=== PATIENT | female | born 1960 | race Caucasian/White ===

== ENCOUNTER 2019-05-16 19:30 | Emergency (ER) | payer BC, SELFPAY ==
[2019-05-16 19:36] VITALS: BP 138/71; PULSE 77; RESP 20; TEMP 36.8; O2SAT 97
--- NOTE | 2019-05-16 19:58 | ED.GENADULT ---
HPI - General Adult General Chief complaint: Neck Pain/Injury Stated complaint: neck pain Time Seen by Provider: 05/16/19 19:49 Source: patient Mode of arrival: ambulatory Limitations: no limitations History of Present Illness HPI narrative: Patient is a 58-year-old female who presents to emergency department for evaluation of neck pain that she woke with 2 days ago with some moderate aching pain in the posterior aspect of the neck that does not radiate is tried [id number] medications and interventions with minimal improvement patient on arrival to emergency department is in the room in no distress Related Data Home Medications Medication Instructions Recorded Confirmed simvastatin 10 mg tablet 10 mg PO DAILY 02/10/19 02/10/19 Allergies Allergy/AdvReac Type Severity Reaction Status Date / Time latex Allergy Unknown UNKNOWN Verified 05/16/19 19:45 Penicillins Allergy Unknown UNKNOWN Verified 05/16/19 19:45 Review of Systems Review of Systems: All systems reviewed & are unremarkable except as noted in HPI and below PMFSH Past Medical History Medical History Bunionette of left foot (~2011) Surgical removal HLD (hyperlipidemia) Hypertension Social History Social History Smoking status: Never smoker Second hand tobacco smoke exposure: No Alcohol intake: never Substance use: never Substance use type: does not use Exam Narrative: Exam Narrative: GENERAL: Well-appearing, well-nourished, and in no acute distress. HEAD: Normocephalic, atraumatic. EYES: PERRLA and EOMI. ENT: Nares clear, no rhinorrhea or epistaxis. Mucous membranes moist. Oropharynx without tonsillar hypertrophy exudate or other lesions. Bilateral TMs pearly noe nonbulging NECK: Supple. No adenopathy or masses. CHEST: Clear to auscultation. No respiratory distress. No wheezes rales or rhonchi HEART: Regular rate and rhythm. No murmur heard. Normal peripheral pulses. ABDOMEN: Soft, nontender, nondistended EXTREMITIES: Normal range of motion. No edema. SKIN: Warm, dry, no rash. NEURO: No focal deficits. Alert and oriented x3. Cranial nerves II through XII grossly intact. Normal speech and gait PSYCH: Normal mood and affect. Course Course Emergency Course: Patient in the room in no distress aware of case findings treatment plan and diagnosis Vital Signs Vital signs: Vital Signs Temperature 98.2 F 05/16/19 19:36 Pulse Rate 77 05/16/19 19:36 Respiratory Rate 20 05/16/19 19:36 Blood Pressure 138/71 05/16/19 19:36 Pulse Oximetry 97 05/16/19 19:36 Temperature 98.2 F 05/16/19 19:36 Pulse Rate 77 05/16/19 19:36 Respiratory Rate 20 05/16/19 19:36 Blood Pressure 138/71 05/16/19 19:36 Pulse Oximetry 97 05/16/19 19:36 Medical Decision Making MDM Narrative Medical decision making narrative: Patient with likely spasmodic torticollis in the room afebrile nontoxic-appearing no distress and felt appropriate for discharge home Vital Signs Vital Signs: Vital Signs Temperature 98.2 F 05/16/19 19:36 Pulse Rate 77 05/16/19 19:36 Respiratory Rate 20 05/16/19 19:36 Blood Pressure 138/71 05/16/19 19:36 Pulse Oximetry 97 05/16/19 19:36 Temperature 98.2 F 05/16/19 19:36 Pulse Rate 77 05/16/19 19:36 Respiratory Rate 20 05/16/19 19:36 Blood Pressure 138/71 05/16/19 19:36 Pulse Oximetry 97 05/16/19 19:36 Discharge Plan Discharge Clinical Impression: Torticollis Patient Disposition: Home, Self-Care Condition: Stable Instructions: Antibiotic Form, Spasmodic Torticollis (ED) Additional Instructions: Follow up with your primary care doctor in 5-7 days for re-evaluation. Go to ER for worsening pain, vision changes, nausea/vomiting, fever/chills, weakness, chest pain, shortness of breath, numbness/tingling, slurred speech, difficulty walking, c
[2019-05-16] MEDS: DIAZEPAM 5 MG TABLET PO (20:04)
[2019-05-16] MEDS: KETOROLAC (*BKC) 60 MG/2 ML VIAL IM (20:04)
[2019-05-16 20:45] VITALS: BP 120/80; PULSE 80; RESP 20; TEMP 36.7; O2SAT 98
== END 2019-05-16 20:46 | disposition home or self-care (01) ==
LOC: ANHED 20:11
PROVIDERS: Emergency Provider Emergency Medicine; PCP Family Medicine
DX: M43.6 Torticollis (principal); E78.5 Hyperlipidemia, unspecified; I10 Essential (primary) hypertension
CPT/HCPCS: 96372; 99283; A9270; J1885

== ENCOUNTER 2022-01-01 12:28 | Inpatient (IN) | payer BC, SELFPAY ==
[2022-01-01] VITALS (11 sets, daily range): BP systolic 106–146; BP diastolic 63–87; PULSE 80–100; RESP 16–26; TEMP 36.5–37.3; O2SAT 91–100; BMI 27.1
--- NOTE | ~2022-01-01 | CT_ITS ---
EXAMINATION: CT abdomen pelvis w con INDICATION: Abdominal pain, nausea and vomiting TECHNIQUE: Computed tomographic images of the abdomen and pelvis were obtained after the administrati on of 100 cc of Omnipaque 350 intravenous contrast. The dose-length product (DLP) was 457.60 mGy-cm. Automated exposure control and iterative reconstruction technique were employed. COMPARISON: None available FINDINGS: Minimal dependent atelectasis is present in the lung bases. The heart size is normal. Punct ate calcifications in otherwise normal appearing liver and spleen likely represent healed granulomato us disease. The pancreas, gallbladder, and adrenal glands are normal. The kidneys are unremarkable. N o pathologically enlarged abdominal or pelvic lymph nodes are identified. There is colonic diverticul osis. There is wall thickening of the sigmoid colon with associated edematous stranding of the perisi gmoid fat. There is an approximately 1.9 x 1.4 cm area of perforation and abscess adjacent to the sig moid colon on image 118. There is a second small perisigmoid abscess on image 131 measuring 2.1 x 1.2 cm. The appendix is normal. There are no dilated loops of bowel. A 4.4 x 2.9 cm cystic area of the r ight pelvis likely relates to the right ovary. There is mild lumbar spondylosis. IMPRESSION: 1. Perforated sigmoid diverticulitis with small perisigmoid abscesses. Reviewed, dictated and finalized at location [facility].
[2022-01-01 13:01] LABS: Hematocrit 40.4 % (37.0-47.0); Hemoglobin 13.4 g/dL (12.0-15.0); Mean Corpuscular HGB Conc 33.2 g/dl (32-36); Mean Corpuscular Hemoglobin 32.6 pg (26-34); Mean Corpuscular Volume 98.3 fl (80-100); Mean Platelet Volume 9.4 fl (7.4-10.4); Platelet Count Result 439 k/mm3 (150-375); Red Blood Count 4.11 M/mm3 (4.2-5.4); Red Cell Distribution Width 14.6 % (11.5-14.5)
[2022-01-01 13:12] LABS: Alanine Aminotransferase 22 U/L (6-35); Alkaline Phosphatase 82 U/L (38-126); Anion Gap 9 mmol/L (8-16); Aspartate Amino Transferase 25 U/L (14-36); Bilirubin,Total 0.7 mg/dL (0.2-1.3); Blood Urea Nitrogen 18 mg/dL (7-17); Calcium 9.3 mg/dL (8.4-10.2); Carbon Dioxide 31 mmol/L (22-30); Chloride 100 mmol/L (98-107); Estimated CRCL calculation 71 ml/min; Estimated Glomerular Filt Rate > 60; Glucose 146 mg/dL (65-110); Lipase 42 U/L (23-300); Potassium 2.8 mmol/L (3.4-5.0); Sodium 140 mmol/L (137-145)
[2022-01-01 13:37] LABS: Band Neutrophils Percent 1 % (0-6); Lymphocytes Absolute Manual 0.66 K/mm3 (1.1-4.5); Monocytes Absolute Manual 0.44 K/mm3 (0.1-0.90); Monocytes Percent Manual 2 % (3-9); Neutrophils Percent Manual 94 % (46-73); Total Cells Counted 100
[2022-01-01 13:39] LABS: Platelet Estimate Increased (Adequate); Schistocytes None Seen (NORMAL)
[2022-01-01 13:44] LABS: Add Urine Microscopic? YES; Appearance Urine Cloudy (Clear); Bacteria Urine Trace /hpf; Bilirubin Urine Negative (Negative); Blood Urine Negative (Negative); Color Urine Yellow (Yellow); Glucose Urine UA Negative (Negative); Ketones Urine 1+ mg/dL (Negative); Leukocyte Esterase Ur Negative LEU/UL (Negative); Mucus Urine Rare /lpf; Nitrate Urine Negative (Negative); Protein Urine 1+ mg/dL (Negative); RBC Urine 0-2 /hpf (0-2); Specific Grav Ur 1.024 (1.001-1.035); Squamous Epithelial Cell Urine Many /hpf (Few)
--- NOTE | 2022-01-01 14:08 | ED.ABDPAIN ---
HPI - Abdominal Pain General Chief Complaint: Abdominal Pain Stated Complaint: abd pain Time Seen by Provider: 01/01/22 14:08 Source: patient Mode of arrival: ambulatory Limitations: no limitations History of Present Illness HPI narrative: Patient is a 61-year-old female with a history of hypertension presenting to the emergency department for evaluation of abdominal pain nausea and vomiting. Patient reports his acute onset nausea, vomiting this morning that awaken her from sleep. She also is reporting significant central abdominal pain with radiation to the back. Patient states she is having increased right flank pain when compared to the level. Patient denies fever or chills. She reports rhinorrhea, cough, shortness of breath. Patient denies any chest pain. Patient denies dysuria or hematuria. Patient did report some constipation and significant straining with bowel movements so she did use a Fleet enema and was able to have a bowel movement with some improvement in her symptoms. Patient denies any watery diarrhea, blood or mucus present in her stool. She denies significant abdominal distention or history of symptoms like this in the past. Patient also states that she was recently treated for poison sonu of the face with steroids. She was worried she may have a spider bite on her right cheek due to some discoloration and a small raised area. Patient denies any bleeding or excoriation. No pain. Patient states there was initially some edema of the right cheek which is now much improved. Related Data Allergies Allergy/AdvReac Type Severity Reaction Status Date / Time latex Allergy Unknown UNKNOWN Verified 01/01/22 16:56 Penicillins Allergy Unknown UNKNOWN Verified 01/01/22 16:56 Review of Systems Review of Systems: CONSTITUTIONAL: Denies fever, chills, or sweats. ENT: Denies rhinorrhea, congestion, sore throat, or otalgia. CARDIOVASCULAR: Denies chest pain, palpitations, or edema. RESPIRATORY: Denies cough or dyspnea. GASTROINTESTINAL: Reports abdominal pain, nausea, vomiting, constipation GENITOURINARY: Denies dysuria or hematuria. SKIN: Denies rash or itching. MUSCULOSKELETAL: Reports right flank pain without other joint pain, or myalgia. NEUROLOGIC: Denies headache, numbness, or weakness. [facility] Past Medical History Medical History Bunionette of left foot (~2011) Surgical removal HLD (hyperlipidemia) Hypertension Poison sonu dermatitis Surgical History Surgical History History of partial hysterectomy Partial vaginal hysterectomy Family History Family History Grandparent Family history of glaucoma Hypertension Family history of elevated blood lipids Mother Hypertension Family history of elevated blood lipids Sibling Hypertension Family history of elevated blood lipids Social History Social History Smoking status: Never smoker Second hand tobacco smoke exposure: No Alcohol intake: current Drinks per week: 3 Substance use: never Substance use type: does not use Living arrangements: with family Occupation/Education: occupation 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
[2022-01-01] MEDS: SODIUM CHLORIDE 0.9% IV 1,000 ML 999 ML IV CONT (15:00)
[2022-01-01] MEDS: MORPHINE SULFATE (*CRX) 4 MG/ML INJ IV PUSH (15:00)
[2022-01-01] MEDS: ONDANSETRON INJ 4 MG/2 ML VIAL IV PUSH ×2 (15:00→17:27)
[2022-01-01 15:19] LABS: Lactic Acid Reflex 1.3 mmol/L (0.7-2.0); Magnesium 1.9 mg/dL (1.6-2.3)
[2022-01-01] MEDS: POTASSIUM CHLORIDE 20 MEQ TABLET 40 MEQ PO ×2 (15:31→21:29)
[2022-01-01 16:22] LABS: SARS-CoV-2 RNA PCR Negative
[2022-01-01] MEDS: metroNIDAZOLE 500 MG/ISO 100ML 500 MG/100 ML BAG 100 MG IVPB ×2 (16:30→21:29)
--- NOTE | 2022-01-01 16:30 | PC.NURSE ---
4MG MORPHINE WAS GIVEN BUT UNABLE TO SCAN DUE TO HOSPITALIST CHANGING THE PRN PAIN MEDICATION FOR THE FLOOR ORDERS DURING MY SCANNING PROCESS.
--- NOTE | 2022-01-01 16:30 | PM.IMHP ---
H&P: HPI History of Present Illness Date/Time: 01/01/22 16:30 Chief Complaint: Lower abdominal pain, vomiting Narrative: This is a 61-year-old women with a history of hypertension and hyperlipidemia, who presented to the ER today with complaints of lower abdominal pain and vomiting. She reports about 2 weeks ago, having an episode of nausea and vomiting at work. She vomited 3 times that day and reportedly felt unwell the next day but no more vomiting. She then started feeling better and had no issues all of last week. Overnight, around 3:00am she woke up with nausea and vomiting again. She also had lower abdominal pain. She denies having abdominal pain prior to this morning. Denies any fever or chills. No history of diverticulitis. She does report feeling constipated over the past few days, which is unusual for her. She tried taking an enema yesterday and had mostly only the enema return that was pink-tinged . No hematochezia or melena. Her pain continued throughout the day today, therefore she came into the ER for evaluation. CT scan of the abdomen and pelvis showed acute sigmoid diverticulitis with perforation and two small perisigmoid abscesses. Labs showed a WBC count of 22,000, potassium 2.8, BUN 18, creatinine 0.6, magnesium 1.9, lactic acid 1.3. Our service was consulted by the ED physician and she will be admitted in the setting of acute perforated sigmoid diverticulitis with abscess. She is now seen in the ER. She does not feel like she had much of any pain relief with the IV Morphine given to her in the ER. She is still having lower abdominal pain and reports this radiates into her low back. She denies nausea and has not had any vomiting since being in the ER. No previous abdominal surgeries. She has never had a colonoscopy. Review of Systems Review of Systems: All systems reviewed & are unremarkable except as noted in HPI and below Constitutional: Constitutional: Reports as per HPI, Reports no additional constitutional complaints, Denies chills, Denies fatigue, Denies fever(s), Denies headache(s) and Denies poor appetite Eyes: Eyes: Reports no additional eye complaints ENT: Reports system reviewed and no additional complaints, except as documented and Reports Normal hearing present Cardiovascular: Cardiovascular: Reports no additional cardiovascular complaints, Denies chest pain and Denies leg edema Respiratory: Respiratory: Reports no additional respiratory complaints, Denies cough and Denies dyspnea Gastrointestinal: Gastrointestinal: Reports as per HPI, Reports no additional gastrointestinal complaints, Reports abdominal pain, Denies melena, Denies bloating, Denies hematochezia, Denies coffee ground emesis, Reports constipation, Denies diarrhea, Reports nausea, Reports vomiting and Denies hematemesis Genitourinary: Genitourinary: Reports no additional female genitourinary complaints, Denies nocturia and Denies dysuria Musculoskeletal: Musculoskeletal: Reports no additional musculoskeletal complaints Integumentary/Breasts: Skin/Breast: Reports system reviewed and no additional complaints, except as docu Neurologic: Reports system reviewed and no additional complaints, except as documented, Denies dizziness, Denies focal weakness, Denies numbness and Denies tingling PMFSH Past Medical History Medical History Bunionette of left foot (~2011) Surgical removal HLD (hyperlipidemia) Hypertension Poison sonu dermatitis Surgical History Surgical History History of partial hysterectomy Partial vaginal hysterectomy Family History Family History Grandparent Family history of glaucoma Hypertension Family history of elevated blood lipids Mother Hypertension Family history of elevated blood lipids Sibling Hypertension Family history of eleva
[2022-01-01] MEDS: IBUPROFEN IV 800 MG/200 ML 800 MG/200 ML BAG 400 MG IVPB ×2 (17:18→23:40)
--- NOTE | 2022-01-01 17:59 | ADMGEN ---
This patient, Brady Smith, was admitted to Medical Room 349-01. Patient/family oriented to hospital policies and general routines including ID bracelet, bed and alarms, visiting hours, pain management, procedures, bathroom and other care routines, personal items, smoking policy, room service/diet, and visiting hours. Information on how to activate the Rapid Response Team has been discussed. Patient/Family are encouraged to report perceived risks to care and to ask questions if they do not understand what they are told or what they should do.
[2022-01-01] MEDS: KCL 40 MEQ/D5/0.9% SOD CHL 1,000 ML 100 ML IV CONT (18:36)
[2022-01-01] MEDS: LOSARTAN POTASSIUM 25 MG TABLET PO (19:19)
[2022-01-02] VITALS (7 sets, daily range): BP systolic 118–125; BP diastolic 62–64; PULSE 74–92; RESP 18–20; TEMP 36.2–36.9; O2SAT 94–99
[2022-01-02] MEDS: KCL 40 MEQ/D5/0.9% SOD CHL 1,000 ML 100 ML IV CONT (04:35)
[2022-01-02] MEDS: CEFEPIME 1 GM in DEXTROSE 5% IN WATER 50 ML IVPB ×2 (05:29→17:09)
[2022-01-02 05:49] LABS: Basophils Percent Auto 0.2 % (0.2-1.2); Eosinophils Percent Auto 0.2 % (0-4.4); Hematocrit 34.3 % (37.0-47.0); Hemoglobin 11.4 g/dL (12.0-15.0); Immature Granulocyte Absolute 0.12 K/mm3 (0.00-0.031); Immature Granulocyte Percent A 0.7 % (0-0.5); Lymphocytes Absolute Auto 1.06 K/mm3 (0.9-3.2); Mean Corpuscular HGB Conc 33.2 g/dl (32-36); Mean Corpuscular Hemoglobin 33.5 pg (26-34); Mean Corpuscular Volume 100.9 fl (80-100); Mean Platelet Volume 9.5 fl (7.4-10.4); Monocytes Absolute Auto 1.3 K/mm3 (0.1-0.6); Monocytes Percent Auto 7.1 % (2.6-8.5); Neutrophils Absolute Auto 15.1 K/mm3 (1.3-6.7); Neutrophils Percent Auto 85.8 % (45.5-73.1); Platelet Count Result 329 k/mm3 (150-375); Red Cell Distribution Width 15.3 % (11.5-14.5); White Blood Count 17.6 K/mm3 (4.5-10.0)
[2022-01-02 06:02] LABS: Anion Gap 9 mmol/L (8-16); Blood Urea Nitrogen 11 mg/dL (7-17); Calcium 8.3 mg/dL (8.4-10.2); Carbon Dioxide 27 mmol/L (22-30); Chloride 108 mmol/L (98-107); Estimated CRCL calculation 62 ml/min; Estimated Glomerular Filt Rate > 60; Glucose 147 mg/dL (65-110); Potassium 3.8 mmol/L (3.4-5.0); Sodium 144 mmol/L (137-145)
[2022-01-02] MEDS: IBUPROFEN IV 800 MG/200 ML 800 MG/200 ML BAG 400 MG IVPB (06:02)
[2022-01-02] MEDS: metroNIDAZOLE 500 MG/ISO 100ML 500 MG/100 ML BAG 100 MG IVPB ×3 (06:36→20:49)
[2022-01-02] MEDS: LOSARTAN POTASSIUM 25 MG TABLET PO (09:25)
--- NOTE | 2022-01-02 11:12 | PM.PNGS ---
Progress Note: A&P Assessment and Plan (1) Perforation of sigmoid colon due to diverticulitis: Code(s): K57.20 - Diverticulitis of large intestine with perforation and abscess without bleeding Status: Acute Assessment and Plan: Clinically improving. WBC count down to 17K today. Abdominal tenderness improved. Will start clear liquids and transition to oral pain medication. Continue IV antibiotics. Decrease IV fluids. Repeat labs tomorrow morning. (2) Acute hypokalemia: Code(s): E87.6 - Hypokalemia Status: Acute Assessment and Plan: Potassium 3.8 this morning. Continue to monitor labs. HCTZ still on hold. (3) Hypertension: Qualifiers: Hypertension type: essential hypertension Qualified Code(s): I10 - Essential (primary) hypertension Code(s): I10 - Essential (primary) hypertension Status: Chronic Assessment and Plan: BP stable this morning. Losartan resumed. Continue to monitor. (4) HLD (hyperlipidemia): Qualifiers: Hyperlipidemia type: unspecified Qualified Code(s): E78.5 - Hyperlipidemia, unspecified Code(s): E78.5 - Hyperlipidemia, unspecified Status: Chronic Assessment and Plan: Will resume her statin. Plan I have discussed the patient's case and plan of care with Dr. Silva. Subjective Subjective Date/Time Seen: 01/02/22 11:12 Patient reports: no new complaints, feels better, pain is less, flatus, no bowel movement and afebrile Interval history: Patient seen and examined. She reports feeling better today. She did have vomiting when leaving the ER yesterday, but no more nausea and vomiting. Reports her abdominal pain is much better today. Still having some mild LLQ abdominal pain. Review of Systems Review of Systems: All systems reviewed & are unremarkable except as noted in HPI and below Exam Const: General: comfortable, no acute distress and awake Orientation/consciousness: patient oriented x3 Resp: Effort & Inspection: no respiratory distress Auscultation: clear to auscultation bilaterally Cardio: Rate: regular rate Rhythm: regular rhythm GI: Inspection: non-distended GI Palp: Yes Soft to palpation, Yes Tenderness to palpation present (GI) (LLQ), No Guarding due to palpation present (GI) and No Rebound tenderness present Auscultation: normal bowel sounds Neuro: General: moves all extremities and no focal motor deficits Extrem: General: normal to inspection and no edema Psych: Mental Status: mental status grossly normal Insight: Good insight present (Psych) Objective Data Vital Signs Vital Signs: Vital Signs - 24 hr 01/01/22 12:42 01/01/22 14:01 01/01/22 14:16 Temperature 98.0 F Pulse Rate 89 100 99 Respiratory Rate 18 16 16 Blood Pressure 122/76 127/83 136/80 Pulse Oximetry 100 99 97 Oxygen Delivery Room Air 01/01/22 15:17 01/01/22 16:01 01/01/22 16:31 Temperature Pulse Rate 98 97 Respiratory Rate 21 H 26 H Blood Pressure 146/79 H 141/87 H 113/79 Pulse Oximetry 98 96 99 Oxygen Delivery 01/01/22 16:46 01/01/22 17:08 01/01/22 17:50 Temperature 99.2 F Pulse Rate 91 80 93 Respiratory Rate 19 16 18 Blood Pressure 136/75 130/70 109/69 Pulse Oximetry 91 97 94 Oxygen Delivery 01/01/22 21:17 01/01/22 20:00 01/02/22 00:00 Temperature 97.7 F Pulse Rate 94 93 92 Respiratory Rate 20 Blood Pressure 106/63 Pulse Oximetry 95 Oxygen Delivery 01/02/22 04:14 01/02/22 04:00 01/02/22 09:15 Temperature 98.4 F Pulse Rate 88 82 74 Respiratory Rate 18 Blood Pressure 122/62 Pulse Oximetry 97 Oxygen Delivery 01/02/22 09:15 Temperature Pulse Rate Respiratory Rate Blood Pressure Pulse Oximetry Oxygen Delivery Room Air Intake/Output Intake/Output: Intake & Output 12/30/21 12/31/21 01/01/22 01/02/22 23:59 23:59 23:59 23:59 Intake Total 1300 1475 Output Total 200 450 Balance 1100 1025 Meds/Results Medication
[2022-01-02] MEDS: HYDROcodone/acetaminophen (*CRX) 10-325 MG TABLET 1 TAB PO (12:24)
[2022-01-02] MEDS: KCL 40 MEQ/D5/0.9% SOD CHL 1,000 ML 70 ML IV CONT (17:09)
[2022-01-02] MEDS: ONDANSETRON INJ 4 MG/2 ML VIAL IV PUSH (18:08)
[2022-01-02] MEDS: HYDROcodone/acetaminophen (*CRX) 5-325 MG TABLET 1 TAB PO ×2 (18:08→23:20)
[2022-01-03 04:02] VITALS: BP 122/68; PULSE 84; RESP 20; TEMP 36.2; O2SAT 98
[2022-01-03] MEDS: CEFEPIME 1 GM in DEXTROSE 5% IN WATER 50 ML IVPB ×2 (05:15→17:35)
[2022-01-03 05:55] LABS: Hematocrit 32.9 % (37.0-47.0); Hemoglobin 10.7 g/dL (12.0-15.0); Mean Corpuscular HGB Conc 32.5 g/dl (32-36); Mean Corpuscular Hemoglobin 32.4 pg (26-34); Mean Corpuscular Volume 99.7 fl (80-100); Mean Platelet Volume 9.9 fl (7.4-10.4); Platelet Count Result 307 k/mm3 (150-375); Red Cell Distribution Width 15.7 % (11.5-14.5); White Blood Count 14.4 K/mm3 (4.5-10.0)
[2022-01-03 06:17] LABS: Anion Gap 2 mmol/L (8-16); Blood Urea Nitrogen 5 mg/dL (7-17); Calcium 8.5 mg/dL (8.4-10.2); Carbon Dioxide 26 mmol/L (22-30); Chloride 109 mmol/L (98-107); Estimated CRCL calculation 71 ml/min; Estimated Glomerular Filt Rate > 60; Glucose 114 mg/dL (65-110); Sodium 137 mmol/L (137-145)
[2022-01-03] MEDS: HYDROcodone/acetaminophen (*CRX) 5-325 MG TABLET 1 TAB PO ×4 (06:20→21:26)
[2022-01-03] MEDS: metroNIDAZOLE 500 MG/ISO 100ML 500 MG/100 ML BAG 100 MG IVPB ×3 (06:20→21:17)
[2022-01-03] MEDS: LOSARTAN POTASSIUM 25 MG TABLET PO (10:19)
--- NOTE | 2022-01-03 13:06 | PCNSR ---
On 01/03/22, the student, Andrea Leiva, provided care and [facility]. I have reviewed the student's documentation and agree with the findings.
[2022-01-03 14:00] VITALS: BP 142/90; PULSE 89; RESP 20; TEMP 37; O2SAT 90
[2022-01-03 22:00] VITALS: BP 140/88; PULSE 86; RESP 18; TEMP 37; O2SAT 98
[2022-01-04] MEDS: HYDROcodone/acetaminophen (*CRX) 5-325 MG TABLET 1 TAB PO (03:19)
[2022-01-04] MEDS: CEFEPIME 1 GM in DEXTROSE 5% IN WATER 50 ML IVPB (05:39)
[2022-01-04 05:48] LABS: Hematocrit 36.4 % (37.0-47.0); Hemoglobin 11.9 g/dL (12.0-15.0); Mean Corpuscular HGB Conc 32.7 g/dl (32-36); Mean Corpuscular Hemoglobin 33.1 pg (26-34); Mean Corpuscular Volume 101.4 fl (80-100); Mean Platelet Volume 10.3 fl (7.4-10.4); Platelet Count Result 350 k/mm3 (150-375); Red Blood Count 3.59 M/mm3 (4.2-5.4); Red Cell Distribution Width 15.3 % (11.5-14.5); White Blood Count 12.3 K/mm3 (4.5-10.0)
[2022-01-04 06:00] VITALS: BP 133/82; PULSE 86; RESP 18; TEMP 37; O2SAT 98
[2022-01-04 06:01] LABS: Anion Gap 10 mmol/L (8-16); Blood Urea Nitrogen 6 mg/dL (7-17); Carbon Dioxide 28 mmol/L (22-30); Chloride 104 mmol/L (98-107); Estimated CRCL calculation 71 ml/min; Estimated Glomerular Filt Rate > 60; Glucose 99 mg/dL (65-110); Potassium 3.7 mmol/L (3.4-5.0); Sodium 142 mmol/L (137-145)
[2022-01-04] MEDS: metroNIDAZOLE 500 MG/ISO 100ML 500 MG/100 ML BAG 100 MG IVPB (06:14)
--- NOTE | 2022-01-04 08:17 | PM.DS ---
DS: Admitting Diagnosis Discharge Date 01/04/2022 Admitting Diagnosis acute diverticulitis with abscess hypokalemia essential hypertension DS: Discharge Diagnosis Discharge Diagnosis (1) Perforation of sigmoid colon due to diverticulitis: Code(s): K57.20 - Diverticulitis of large intestine with perforation and abscess without bleeding Status: Acute Assessment and Plan: much improved after 3 days of antibiotics. Will discharge today on low-fiber diet and metronidazole with ciprofloxacin. I will see the patient again in 2 weeks. (2) Acute hypokalemia: Code(s): E87.6 - Hypokalemia Status: Acute Assessment and Plan: Resolved after supplement. (3) Hypertension: Qualifiers: Hypertension type: essential hypertension Qualified Code(s): I10 - Essential (primary) hypertension Code(s): I10 - Essential (primary) hypertension Status: Chronic Assessment and Plan: Continue home meds DS: Summary Hospital Course Hospital Course: patient came to the emergency room on 01/01/2022 with severe lower abdominal pain as well as nausea and vomiting. She had an elevated white blood cell count. CT scan showed sigmoid diverticulitis with a couple of small Faizan colonic abscess is. Patient was placed on cefepime and metronidazole intravenous antibiotics. She rapidly improved. She was started on clear liquids on 01/02/2022. She was advanced to a low-fiber diet on 01/03. Dietitian spoke to her about a low-fiber diet. She continued to improve and was able to be discharged on 01/04/2022. Status at Discharge Functional status at discharge: independent ambulation Overall status at discharge: patient is progressing back to baseline Time Spent with Patient Time attestation: Total time spent providing and/or coordinating discharge services: Time spent: Less than 30 minutes DS: Data Data Completed and Pending Labs on day of discharge: Labs from last 24 hours 01/04/22 01/04/22 05:18 05:18 WBC 12.3 H RBC 3.59 L Hgb 11.9 L Hct 36.4 L MCV 101.4 H MCH 33.1 MCHC 32.7 RDW 15.3 H Plt Count 350 MPV 10.3 Sodium 142 Potassium 3.7 Chloride 104 Carbon Dioxide 28 Anion Gap 10 BUN 6 L Creatinine 0.60 L Estim Creat Clear Calc 71 Estimated GFR > 60 Glucose 99 Calcium 9.0 Preliminary micro results at discharge 01/01/22 15:02 Blood Culture - Preliminary Blood 01/01/22 15:02 Blood Culture - Preliminary Blood Discharge Plan Discharge Attending physician on discharge: Federico Silva Discharging Clinician: Federico Silva Anticipated Discharge Date/Time: 01/04/22 08:22 Patient Disposition: Home, Self-Care Activity: may shower and as tolerated Diet: low fiber Discharge Instructions: Ambulate 3-4 x per day and as tolerated. No lifting over 30 lbs. May bathe or shower. Stairs are OK. May drive a car in 1-2 days Low-fiber diet for 2 weeks Patient Instructions: Antibiotic Form Stand Alone Forms: General Discharge Information, Work/School Release IP Follow-up/Referrals: Federico Silva MD [Physician] - 2 Weeks ( call Dr. Vargas office for appointment) Discharge Medications: New hydrocodone-acetaminophen 5-325 mg tablet 1 - 2 tablet PO Q6H PRN (Reason: pain) Qty: 7 0RF ciprofloxacin HCl 500 mg tablet 500 mg PO Q12H Qty: 14 0RF ibuprofen 600 mg tablet 600 mg PO Q6H PRN (Reason: pain) Qty: 14 0RF metronidazole 500 mg tablet 500 mg PO TID Qty: 20 0RF Continued simvastatin 10 mg tablet 10 mg PO DAILY Qty: 30 5RF hydrochlorothiazide 12.5 mg tablet 12.5 mg PO DAILY Qty: 30 6RF losartan 25 mg tablet 25 mg PO DAILY Qty: 90 1RF Date of admission: 01/01/22 15:52 Primary Care Provider: Harper Galindo Admitting Provider: Federico Silva Attending physician on admission: Federico Silva Condition: Improved
[2022-01-04] MEDS: LOSARTAN POTASSIUM 25 MG TABLET PO (08:47)
== END 2022-01-04 11:07 | disposition home or self-care (01) | DRG 392 ==
LOC: ANHED 15:54 → ANH3MED 16:48
PROVIDERS: Emergency Medicine; Nurse Practitioner Family; Admitting Provider Surgery; Emergency Provider Emergency Medicine; PCP Family Medicine; Visit Provider Surgery
DX: K57.20 Diverticulitis of large intestine with perforation and abscess without bleeding (principal); E87.6 Hypokalemia; I10 Essential (primary) hypertension; E78.5 Hyperlipidemia, unspecified; Z20.822 Contact with and (suspected) exposure to COVID-19; Z79.899 Other long term (current) drug therapy
CPT/HCPCS: 36415; 74177; 80048; 80053; 81001; 83605; 83690; 83735; 85025; 85027; 87040; 96374; 96375; 99285; A9270; C9803; J0692; J1741; J2270; J2405; J3480; J7030; Q9967; U0003; U0005

== ENCOUNTER 2022-01-15 11:57 | Outpatient (CLI) | payer BC, SELFPAY ==
[2022-01-15 12:52] LABS: Basophils Absolute Auto 0.1 K/mm3 (0.0-0.1); Basophils Percent Auto 0.3 % (0.2-1.2); Eosinophils Percent Auto 0.2 % (0-4.4); Hematocrit 40.3 % (37.0-47.0); Hemoglobin 13.5 g/dL (12.0-15.0); Immature Granulocyte Absolute 0.07 K/mm3 (0.00-0.031); Immature Granulocyte Percent A 0.4 % (0-0.5); Lymphocytes Percent Auto 9.5 % (18.3-44.2); Mean Corpuscular HGB Conc 33.5 g/dl (32-36); Mean Corpuscular Hemoglobin 32.5 pg (26-34); Mean Corpuscular Volume 97.1 fl (80-100); Mean Platelet Volume 10.7 fl (7.4-10.4); Monocytes Absolute Auto 1.7 K/mm3 (0.1-0.6); Neutrophils Absolute Auto 15.4 K/mm3 (1.3-6.7); Neutrophils Percent Auto 80.6 % (45.5-73.1); Nucleated Red Blood Cells Perc 0.2 % (0.0-0.2); Platelet Count Result 537 k/mm3 (150-375); Red Blood Count 4.15 M/mm3 (4.2-5.4); Red Cell Distribution Width 14.3 % (11.5-14.5)
== END 2022-01-15 11:58 | disposition home or self-care (01) ==
LOC: ANHLAB 11:58
PROVIDERS: PCP Family Medicine; Visit Provider Surgery
DX: K57.20 Diverticulitis of large intestine with perforation and abscess without bleeding (principal)
CPT/HCPCS: 36415; 85025

== ENCOUNTER 2022-01-15 14:53 | Outpatient (CLI) | payer BC, SELFPAY ==
--- NOTE | ~2022-01-15 | CT_ITS ---
EXAMINATION: CT abdomen pelvis w con DATE: 01/15/2022 15:45 INDICATION: Diverticulitis with abscess TECHNIQUE: Computed tomography (CT) of the abdomen and pelvis was performed with 100 CC Omnipaque 350 intravenous contrast. Automated exposure control and iterative reconstruction technique were employe d. Exam dose: 373.98 mGy-cm total exam DLP. COMPARISON: 01/01/2022 CT abdomen pelvis FINDINGS: There is an approximately 1.5 x 2 cm extraluminal abscess fluid collection sandwiched betwe en the mid sigmoid colon and the posterior wall of the body of the uterus. This previously measured a pproximately 1 x 1.5 cm on 01/01/2022. There is an approximately 10 x 20 mm fluid and air collection along the right lateral serosal surface of the proximal sigmoid colon and an approximately 12 x 11.5 mm collection along the left lateral as pect of the proximal sigmoid colon. These 2 fluid collections are relatively stable since prior exami [facility]. There is persistent prominent thickening of the wall of the entire sigmoid colon, consistent with per sistent inflammation associated with diverticulitis. There is diverticulosis of left and right colon. No bowel obstruction or free intraperitoneal air is noted. The liver, gallbladder, bile ducts, spleen, pancreas, pancreatic duct, adrenal glands and kidneys are unremarkable. Again noted is a probable septated right ovarian cyst measuring approximately 3 x 4.4 cm, stable sinc e 01/01/2022. There is atherosclerotic calcification but normal caliber of the abdominal aorta. The lung bases are clear. Normal heart size. No pericardial or pleural effusion. Included skeletal structures are unremarkable. IMPRESSION: Stable or slightly increased pericolic abscesses in the sigmoid region since 01/01/2022. Persistent prominent thickening of the wall the sigmoid colon Reviewed, dictated and finalized at [facility]. Reviewed, dictated and finalized at location [facility]. IMPRESSION: Stable or slightly increased pericolic abscesses in the sigmoid re gion since 01/01/2022. Persistent prominent thickening of the wall the sigmoid colon
== END 2022-01-15 14:54 | disposition home or self-care (01) ==
PROVIDERS: PCP Family Medicine; Visit Provider Surgery
DX: K57.20 Diverticulitis of large intestine with perforation and abscess without bleeding (principal)
CPT/HCPCS: 74177; Q9967

== ENCOUNTER 2022-03-13 00:58 | Day surgery (SDC) | payer BC, SELFPAY ==
[2022-03-02 10:31] VITALS: BMI 25.4
[2022-03-13 09:09] VITALS: BP 149/79; PULSE 86; RESP 16; TEMP 36.9; O2SAT 100
[2022-03-13] MEDS: LACTATED RINGERS 1,000 ML 150 ML IV CONT (09:11)
--- NOTE | 2022-03-13 09:23 | WPDANESEPPF ---
Anes - Initial Pre Proc Eval Procedure: Operation Date: 03/13/22 10:30 Proposed Procedures p Colonoscopy - Andres Parker MD Date/Time: 03/13/22 09:23 Surgeon: Andres Parker MD Pre Op Diagnosis: diverticulitis Patient Data Age: 61 Gender: F Height: 1.55 m Weight: 61 kg Last Vital Signs Temp 98.5 F 03/13/22 09:09 Pulse 86 03/13/22 09:09 Resp 16 03/13/22 09:09 BP 149/79 H 03/13/22 09:09 Pulse Ox 100 03/13/22 09:09 O2 Del Method Room Air 03/13/22 09:09 Allergies Allergy/AdvReac Type Severity Reaction Status Date / Time latex Allergy Severe Redness of Verified 03/13/22 09:08 Skin Penicillins Allergy Severe Swelling Verified 03/13/22 09:08 Home Medications Medication Instructions Recorded Confirmed Type hydrochlorothiazide 12.5 mg tablet 12.5 mg PO DAILY #30 tabs 12/15/21 03/13/22 Rx losartan 25 mg tablet 25 mg PO DAILY #90 tabs 12/21/21 03/13/22 Rx simvastatin 10 mg tablet 10 mg PO DAILY #30 tabs 03/12/22 03/13/22 Rx Patient hx anesthesia problems: none Family hx anesthesia problems: none Results Review: All pre-operative results and documents have been reviewed as part of the pre-operative evaluation. [facility], [facility] Past Medical History Medical History Bunionette of left foot (~2011) Surgical removal HLD (hyperlipidemia) Hypertension Poison sonu dermatitis Surgical History Surgical History History of partial hysterectomy Partial vaginal hysterectomy Family History Family History Grandparent Family history of glaucoma Hypertension Family history of elevated blood lipids Mother Hypertension Family history of elevated blood lipids Sibling Hypertension Family history of elevated blood lipids Social History Social History Smoking status: Never smoker Second hand tobacco smoke exposure: No Alcohol intake: current Drinks per week: 3 Substance use: never Substance use type: does not use Lack of Transportation: No Lack of Food: Never True Current Housing: I Have Housing Concerned About Future Housing: No Difficulty Paying Gas/Electric Bills: No Difficulty Paying for Meds: No Currently Unemployed: No Education: High School Diploma/GED Difficulty w/ Childcare or Family Care: No Living arrangements: with family Additional occupation/education comments: Works in a [employer] Gender identity (if verbalized by the patient): Female Spiritual care concerns: No Anes - Eval Final PreProcedure Day of Procedure 03/13/22 09:23 Patient weight: normal Heart: regular rate and rhythm Lungs: clear to auscultation Airway: Mallampati scale class II Neurological: alert and oriented Last oral intake: >/= 8 hours ASA classification: II Emergent: no Anesthetic plan: proceed Anesthesia type and monitoring: general GIVS and standard monitoring Results Review: All pre-operative results and documents have been reviewed as part of the pre-operative evaluation. Informed Consent: The patient's anesthetic plan and its attendant risks and benefits were discussed with the patient/family/POA. Questions were solicited and answers provided to the satisfaction of the patient/family/POA.
--- NOTE | 2022-03-13 10:11 | PM.HPGS ---
History of Present Illness History of Present Illness Consent: Risks, benefits, and alternatives have been discussed and questions answered. Patient agrees to proceed with procedure. Chief complaint: diverticulitis Narrative: Brady Smith is a 61 year old female with first episode of sigmoid diverticulitis complicated with microperforation but treated medically, now asymptomatic, never had colonoscopy Review of Systems Constitutional: Constitutional: Denies headache(s) and Denies weakness Eyes: Eyes: Denies blurry vision ENT: Reports Normal hearing present, Denies headache(s) and Denies neck pain Cardiovascular: Cardiovascular: Denies chest pain and Denies dyspnea Respiratory: Respiratory: Denies dyspnea Gastrointestinal: Gastrointestinal: Reports no additional gastrointestinal complaints Genitourinary: Genitourinary: Denies dysuria Musculoskeletal: Musculoskeletal: Denies neck pain Integumentary/Breasts: Skin/Breast: Denies dry skin Neurologic: Reports Normal hearing present, Denies headache(s) and Denies weakness Psychiatric: Psychiatric: Denies anxiety Endocrine: Endocrine: Denies change in body appearance Hematologic/Lymphatic: Hematologic/Lymphatic: Denies easy bleeding Allergic/Immunologic: Allergic/Immunologic: Denies urticaria PMFSH Past Medical History Medical History Bunionette of left foot (~2011) Surgical removal HLD (hyperlipidemia) Hypertension Poison sonu dermatitis Surgical History Surgical History History of partial hysterectomy Partial vaginal hysterectomy Family History Family History Grandparent Family history of glaucoma Hypertension Family history of elevated blood lipids Mother Hypertension Family history of elevated blood lipids Sibling Hypertension Family history of elevated blood lipids Social History Social History Smoking status: Never smoker Second hand tobacco smoke exposure: No Alcohol intake: current Drinks per week: 3 Substance use: never Substance use type: does not use Lack of Transportation: No Lack of Food: Never True Current Housing: I Have Housing Concerned About Future Housing: No Difficulty Paying Gas/Electric Bills: No Difficulty Paying for Meds: No Currently Unemployed: No Education: High School Diploma/GED Difficulty w/ Childcare or Family Care: No Living arrangements: with family Additional occupation/education comments: Works in a [employer] Gender identity (if verbalized by the patient): Female Spiritual care concerns: No Meds Home Medications and Allergies Home Medications Medication Instructions Recorded Confirmed Type hydrochlorothiazide 12.5 mg tablet 12.5 mg PO DAILY #30 tabs 12/15/21 03/13/22 Rx losartan 25 mg tablet 25 mg PO DAILY #90 tabs 12/21/21 03/13/22 Rx simvastatin 10 mg tablet 10 mg PO DAILY #30 tabs 03/12/22 03/13/22 Rx Allergies Allergy/AdvReac Type Severity Reaction Status Date / Time latex Allergy Severe Redness of Verified 03/13/22 09:08 Skin Penicillins Allergy Severe Swelling Verified 03/13/22 09:08 Vital Signs Vital Signs - 24 hr 03/13/22 09:09 Temperature 98.5 F Pulse Rate 86 Respiratory Rate 16 Blood Pressure 149/79 H Pulse Oximetry 100 Oxygen Delivery Room Air Exam Const: General: comfortable and no acute distress HENMT: Face/Nose/Sinus: Normal nares present Eyes: General: appearance normal, both eyes and all related structures Neck: Neck: no JVD Resp: Auscultation: clear to auscultation bilaterally Cardio: Rate: regular rate Rhythm: regular rhythm GI: Inspection: non-distended GI Palp: Yes Soft to palpation Skin: General skin exam: normal color Neuro: General: gait normal Speech
--- NOTE | 2022-03-13 10:41 | SUR.OPER ---
UNABLE TO GET PAST SIGMOID COLON. SIGMOIDOSCOPY DONE.
[2022-03-13 10:45] VITALS: BP 167/97; PULSE 90; RESP 21; O2SAT 100
[2022-03-13 10:55] VITALS: BP 167/97; PULSE 86; RESP 18; O2SAT 100
[2022-03-13 11:05] VITALS: BP 147/57; PULSE 88; RESP 20; O2SAT 100
--- NOTE | 2022-03-13 11:38 | SUR.OPER ---
Appointment made with radiology for barium enema ordered for 03/20/2022. Instructions given and information reviewed with patient and spouse.
== END 2022-03-13 11:29 | disposition home or self-care (01) ==
PROVIDERS: PCP Family Medicine; Visit Provider Internal Medicine Gastroenterology
PROC: 0DJD8ZZ Inspection of Lower Intestinal Tract, Via Natural or Artificial Opening Endoscopic (ICD-10-PCS; CPT 45378; principal; 2022-03-13 10:30)
DX: Z09 Encounter for follow-up examination after completed treatment for conditions other than malignant neoplasm (principal); K56.699 Other intestinal obstruction unspecified as to partial versus complete obstruction; K57.30 Diverticulosis of large intestine without perforation or abscess without bleeding; K64.8 Other hemorrhoids; Z87.19 Personal history of other diseases of the digestive system; I10 Essential (primary) hypertension; E78.5 Hyperlipidemia, unspecified
CPT/HCPCS: 45378; J2704; J7120

== ENCOUNTER 2022-04-02 07:27 | Outpatient (CLI) | payer BC, SELFPAY ==
--- NOTE | ~2022-04-02 | XR_ITS ---
EXAMINATION: XR_ENEMABAC_CR DATE: 04/02/2022 09:03 INDICATION: Sigmoid stricture, incomplete colonoscopy TECHNIQUE: A automatic line set up mechanic radiograph was obtained. A catheter was inserted into the patient's rectum. Contra st was infused by gravity. Gas was infused by hand pump. Fluoroscopic spot images and conventional ra diographs were obtained. Fluoroscopy exposure time was 3.5 minutes. The DAP for this procedure was 89 .854 Gycm2. 30 images were obtained. COMPARISON: CT, 01/15/2022 FINDINGS: Instructional Developer image is unremarkable. There are phleboliths of the pelvis. Punctate left upper quadr ant calcifications are consistent with old granulomatous disease of the spleen. There is diverticulos is of the sigmoid colon. There is an approximately 10 cm stricture of the sigmoid colon. The colon is otherwise normal in caliber. IMPRESSION: 1. Approximately 10 cm stricture of the sigmoid colon likely related to prior diverticulitis. No susp icious colon mass identified. Reviewed, dictated and finalized at location A. ROOM CLERK IMPRESSION: 1. Approximately 10 cm stricture of the sigmoid colon likely related to prior d iverticulitis. No suspicious colon mass identified.
== END 2022-04-02 07:28 | disposition home or self-care (01) ==
PROVIDERS: PCP Family Medicine; Visit Provider Internal Medicine Gastroenterology
DX: K57.20 Diverticulitis of large intestine with perforation and abscess without bleeding (principal); K56.699 Other intestinal obstruction unspecified as to partial versus complete obstruction
CPT/HCPCS: 74280

== ENCOUNTER 2022-09-15 08:21 | Inpatient (IN) | payer BC, SELFPAY ==
[2022-09-15] VITALS (7 sets, daily range): BP systolic 117–141; BP diastolic 60–86; PULSE 88–112; RESP 16–25; TEMP 36.2–38.6; O2SAT 95–100; BMI 27.6
--- NOTE | ~2022-09-15 | CT_ITS ---
EXAMINATION: CT abdomen pelvis w con INDICATION: Lower abdominal and rectal pain TECHNIQUE: Computed tomographic images of the abdomen and pelvis were obtained after the administrati on of 100 cc of Omnipaque 350 intravenous contrast. The dose-length product (DLP) was 408.71 mGy-cm. Automated exposure control and iterative reconstruction technique were employed. COMPARISON: 01/15/2022 FINDINGS: Minimal dependent atelectasis is present in the lung bases. The heart size is normal. A 4 m m nodule of the left lower lobe is stable and likely reflects old granulomatous disease. Punctate jason cifications in otherwise normal appearing liver and spleen likely represent healed granulomatous dise ase. The pancreas, gallbladder, and adrenal glands are normal. The kidneys are unremarkable. There is diverticulitis of the rectosigmoid colon. There is a 7.1 x 5.5 cm pelvic abscess situated between th e rectum and posterior wall of the vagina. A second abscess measuring 4.2 x 3.9 cm is present in the right adnexa. The two abscesses appear to be connected by a short fistula. There are no dilated loops of bowel. The appendix is normal. There is mild lumbar spondylosis. IMPRESSION: 1. Perforated sigmoid diverticulitis with multiple pelvic abscesses. Surgical evaluation is recommend ed. Reviewed, dictated and finalized at location A. IMPRESSION: 1. Perforated sigmoid diverticulitis with multiple pelvic abscesses. Surgical e valuation is recommended.
--- NOTE | ~2022-09-15 | CT_ITS ---
EXAMINATION: CT guide absc cath placement DATE: 09/16/2022 15:14 INDICATION: Diverticular abscess TECHNIQUE: The procedure including the risks and benefits was discussed with the patient. Risks discu ssed included bleeding and infection. The patient understood the risks and benefits and agreed to pro ceed. The patient was confirmed to be receiving appropriate antibiotic coverage. The skin overlying the medial aspect of the left buttock along the gluteal cleft was prepped and draped in usual sterile fashion. Anesthetic was administered with 1% lidocaine subcutaneously. An 18-gauge trochar needle w as inserted into the peritoneal fluid collection utilizing CT guidance. There are several was removed and a J-wire advanced into the fluid collection with position confirmed by CT. Utilizing Seldinger t echnique the needle was removed over the wire and the tract serially dilated to 12 [place]. A 12 Frenc h drainage catheter was placed over the wire and the loop formed and locked. After confirmation of po sitioning by CT the metal stiffener and wire were removed and the catheter stitched to the skin with suture. Antibiotic ointment and a sterile dressing were applied. There were no immediate complication s. A total of 50 mL of opaque . Sparing carrillo-colored fluid was aspirated and sent to the lab for Gram stain and cultures. The catheter was then attached to suction drainage and was draining additional fl uid at the conclusion of the procedure. The dose-length product was 202.48 mGy-cm. FINDINGS: CT images demonstrate the catheter within the pelvic gas and fluid collection. 50 mL fluid was aspirated for testing. IMPRESSION: 1. Successful CT-guided pelvic abscess drainage. 2. 50 mL fluid was sent for aerobic and anaerobic cultures. 3. The catheter will be managed by Dr. Thakkar. Reviewed, dictated and finalized at location A.
--- NOTE | 2022-09-15 08:38 | ED.ABDPAIN ---
HPI - Abdominal Pain General Chief Complaint: Abdominal Pain Stated Complaint: rectal pressure/pain with nausea Time Seen by Provider: 09/15/22 08:25 Source: patient, RN notes reviewed and old records reviewed Mode of arrival: ambulatory Limitations: no limitations History of Present Illness HPI narrative: This is a 62 year old female with history of diverticulitis who presents for evaluation of rectal pain. Patient reports having constipation for a few days. She has been straining to have a bowel movement and she developed rectal pain. She reports most of pain is on left side. She tried enema yesterday with some stool output but her rectal pain has worsened. Her reports patient had nausea and vomiting 2 weeks ago when they were out of town and then she developed constipation. He also reports pain has mild lower abdominal pain. Patient denies fever, chills, nausea or vomiting. She denies rectal bleeding or drainage. Related Data Allergies Allergy/AdvReac Type Severity Reaction Status Date / Time latex Allergy Severe Redness of Verified 09/15/22 08:21 Skin Penicillins Allergy Severe Swelling Verified 09/15/22 08:21 Review of Systems Constitutional: Constitutional: Denies weakness Cardiovascular: Cardiovascular: Denies syncope, Denies rapid heart rate, Denies irregular heart rhythm, Denies leg edema and Denies dyspnea Respiratory: Respiratory: Denies chest congestion, Denies hemoptysis, Denies excessive phlegm production and Denies dyspnea Gastrointestinal: Gastrointestinal: Reports abdominal pain, Denies hematochezia, Reports constipation and Denies vomiting Genitourinary: Genitourinary: Denies hematuria and Denies dysuria Musculoskeletal: Musculoskeletal: Denies joint swelling, Denies loss of height and Denies muscle weakness Neurologic: Denies syncope, Denies focal weakness and Denies weakness PMFSH Past Medical History Medical History Bunionette of left foot (~2011) Surgical removal Diverticulitis HLD (hyperlipidemia) Hypertension Poison sonu dermatitis Surgical History Surgical History History of partial hysterectomy Partial vaginal hysterectomy Family History Family History Grandparent Family history of glaucoma Hypertension Family history of elevated blood lipids Mother Hypertension Family history of elevated blood lipids Sibling Hypertension Family history of elevated blood lipids Social History Social History Smoking status: Never smoker Second hand tobacco smoke exposure: No Alcohol intake: current Drinks per week: 3 Substance use: never Substance use type: does not use Lack of Transportation: No Lack of Food: Never True Current Housing: I Have Housing Concerned About Future Housing: No Difficulty Paying Gas/Electric Bills: No Difficulty Paying for Meds: No Currently Unemployed: No Education: High School Diploma/GED Difficulty w/ Childcare or Family Care: No Living arrangements: with family Occupation/Education: occupation 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): Female Spiritual care concerns: No Exam Const: General: no acute distress and alert Nutritional Appearance: well nourished Orientation/consciousness: patient oriented x3 HENMT: Head: normal to inspection Mouth: Yes Normal oral and palatal mucosa present, Yes lip normal and Yes moist mucous membranes Throat: posterior oropharynx normal Eyes: Pupils: Equal, round and reactive pupils present EOM: EOMs intact bilaterally Chest: Chest palpation & inspection: normal inspection of the chest Resp: Effort & Inspection: normal respiratory effort Auscultation: clear to auscultat
[2022-09-15] MEDS: ONDANSETRON INJ 4 MG/2 ML VIAL IV PUSH ×2 (08:44→17:19)
[2022-09-15] MEDS: SODIUM CHLORIDE 0.9% IV 1,000 ML 999 ML IV CONT (08:45)
[2022-09-15] MEDS: MORPHINE SULFATE (*CRX) 4 MG/ML INJ 6 MG IV PUSH (08:45)
[2022-09-15 08:54] LABS: Basophils Absolute Auto 0.1 K/mm3 (0.0-0.1); Basophils Percent Auto 0.6 % (0.2-1.2); Eosinophils Absolute Auto 0.1 K/mm3 (0-0.3); Eosinophils Percent Auto 0.3 % (0-4.4); Hematocrit 42.2 % (37.0-47.0); Hemoglobin 14.1 g/dL (12.0-15.0); Immature Granulocyte Percent A 0.5 % (0-0.5); Lymphocytes Absolute Auto 2.08 K/mm3 (0.9-3.2); Lymphocytes Percent Auto 10.1 % (18.3-44.2); Mean Corpuscular HGB Conc 33.4 g/dl (32-36); Mean Corpuscular Hemoglobin 32.9 pg (26-34); Mean Corpuscular Volume 98.4 fl (80-100); Monocytes Absolute Auto 1.7 K/mm3 (0.1-0.6); Monocytes Percent Auto 8.1 % (2.6-8.5); Neutrophils Absolute Auto 16.5 K/mm3 (1.3-6.7); Neutrophils Percent Auto 80.4 % (45.5-73.1); Platelet Count Result 434 k/mm3 (150-375); Red Blood Count 4.29 M/mm3 (4.2-5.4); Red Cell Distribution Width 14.5 % (11.5-14.5); White Blood Count 20.5 K/mm3 (4.5-10.0)
[2022-09-15 09:04] LABS: Alanine Aminotransferase 25 U/L (6-35); Albumin Level 4.2 g/dL (3.5-5.1); Alkaline Phosphatase 109 U/L (38-126); Anion Gap 11 mmol/L (8-16); Aspartate Amino Transferase 31 U/L (14-36); Bilirubin,Total 0.7 mg/dL (0.2-1.3); Blood Urea Nitrogen 11 mg/dL (7-17); Calcium 10.2 mg/dL (8.4-10.2); Carbon Dioxide 33 mmol/L (22-30); Chloride 96 mmol/L (98-107); Estimated CRCL calculation 60 ml/min; Estimated Glomerular Filt Rate > 60; Glucose 114 mg/dL (65-110); Lipase 21 U/L (23-300); Potassium 3.2 mmol/L (3.4-5.0); Sodium 140 mmol/L (137-145)
[2022-09-15 09:05] LABS: Lactic Acid Reflex 1.6 mmol/L (0.7-2.0)
[2022-09-15 09:11] LABS: Add Urine Microscopic? YES; Appearance Urine Slightly Cloudy (Clear); Bilirubin Urine 3+ (Negative); Blood Urine Negative (Negative); Color Urine Dark Yellow (Yellow); Glucose Urine UA Negative (Negative); Ketones Urine 3+ mg/dL (Negative); Leukocyte Esterase Ur Negative LEU/UL (Negative); Nitrate Urine Negative (Negative); Protein Urine 3+ mg/dL (Negative); Specific Grav Ur >= 1.030 (1.001-1.035); pH Urine 5.5 (5.0-9.0)
[2022-09-15 09:18] LABS: Bacteria Urine 2+ /hpf
[2022-09-15 09:19] LABS: Mucus Urine Moderate /lpf; RBC Urine 0-2 /hpf (0-2); WBC Urine 0-3 /hpf (0-3)
[2022-09-15] MEDS: metroNIDAZOLE 500 MG/ISO 100ML 500 MG/100 ML BAG 100 MG IVPB ×3 (10:10→21:19)
--- NOTE | 2022-09-15 10:40 | PC.NURSE ---
patient reports taking 81mg aspirin daily. CT aware and will contact radiologist prior to procedure
[2022-09-15 10:49] LABS: INR 1.1; Prothrombin Time 14.9 Seconds (11.1-14.7)
[2022-09-15 10:50] LABS: Partial Thromboplastin Time 35.6 SECONDS (22.3-36.8)
[2022-09-15] MEDS: LACTATED RINGERS 1,000 ML 125 ML IV CONT ×2 (11:13→21:23)
--- NOTE | 2022-09-15 13:43 | PM.CNGS ---
Assessment and Plan Assessment and plan (1) Diverticulitis of large intestine with abscess: Qualifiers: Diverticulitis bleeding: without bleeding Qualified Code(s): K57.20 - Diverticulitis of large intestine with perforation and abscess without bleeding Code(s): K57.20 - Diverticulitis of large intestine with perforation and abscess without bleeding Status: Acute Assessment and Plan: I reviewed the CT and discussed the findings with the patient. I have also discussed her findings with the radiologist. Will attempt percutaneous drainage of the abscess with CT guidance. Patient has been started on broad-spectrum IV antibiotics. Discussed with patient that if percutaneous drainage is unsuccessful or she shows worsening signs or symptoms, she might require emergent exploratory laparotomy. Will try to avoid emergent surgery as this will most likely require diverting colostomy. If we can get her through this episode without emergent surgery, she might be able to eventually have a scheduled colectomy with anastomosis. Will continue to follow along with patient for any changes. (2) Hypertension: Qualifiers: Hypertension type: essential hypertension Qualified Code(s): I10 - Essential (primary) hypertension Code(s): I10 - Essential (primary) hypertension Status: Chronic History of Present Illness Consult details Consult date: 09/15/22 Reason for consult: other (Diverticular abscess) Requesting physician: Alba Gonsalez MD Narrative: This is a 62-year-old woman who presented to the emergency department today with abdominal pain that started about 3 days ago. Her pain is mostly in her deep pelvis and radiating down to her rectum. She did have a fever today, but had been experiencing fevers prior to this. She denies any hematochezia. She has had some problems with constipation the last few days. The patient had an episode of diverticulitis 8 months ago and was treated with a percutaneous drainage of abscess at that time. She followed up with Dr. Silva in the office after recovering from this and surgery was recommended at that time. The patient states that she was too afraid of going through the surgery at that time and chose not to schedule the surgery. She had been doing well up until recently. In the emergency department a CT showed evidence of diverticulitis with abscess. She was also noted to have a 20,000 white count. Her pain is better controlled after receiving some pain meds. Review of Systems Review of Systems: All systems reviewed & are unremarkable except as noted in HPI and below Constitutional: Constitutional: Denies chills and Reports fever(s) Eyes: Eyes: Denies change in vision ENT: Denies hearing loss, Denies neck pain and Denies sore throat Cardiovascular: Cardiovascular: Denies chest pain and Denies dyspnea Respiratory: Respiratory: Denies cough, Denies dyspnea and Denies wheezing Gastrointestinal: Gastrointestinal: Reports as per HPI Genitourinary: Genitourinary: Denies hematuria and Denies dysuria Musculoskeletal: Musculoskeletal: Denies arthralgias, Denies joint swelling and Denies neck pain Allergic/Immunologic: Allergic/Immunologic: Denies wheezing [facility] Past Medical History Medical History Bunionette of left foot (~2011) Surgical removal Diverticulitis HLD (hyperlipidemia) Hypertension Poison sonu dermatitis Surgical History Surgical History History of partial hysterectomy Partial vaginal hysterectomy Family History Family History Grandparent Family history of glaucoma Hypertension Family history of elevated blood lipids Mother Hypertension Family history of elevated blood lipids Sibling Hypertension Family history of elevated blood lipids Social
--- NOTE | 2022-09-15 13:55 | PM.IMHP ---
H&P: HPI History of Present Illness Date/Time: 09/15/22 13:55 Chief Complaint: abdominal pain Narrative: 62-year-old female with history of diverticulitis, hyperlipidemia, hypertension is presenting with abdominal and rectal pain. She reports constipation of the last few days the required straining to have a bowel movement and subsequent rectal pain. She did try an enema yesterday that did give her some stool output but pain worsened. She has had intermittent nausea and vomiting over the last 2 weeks progressively worsening constipation and lower abdominal pain. She denies chest pain or shortness of breath. No fevers or chills. In the ER, CT scan was performed showing perforated sigmoid diverticulitis with multiple pelvic abscesses. General surgery consultation was ordered and they recommended referral to IR for pelvic drain placement. The patient was also started on IV Rocephin and Flagyl. Review of Systems Review of Systems: 12 point review of systems was assessed and was negative except as noted in the [facility] Past Medical History Medical History Bunionette of left foot (~2011) Surgical removal Diverticulitis HLD (hyperlipidemia) Hypertension Poison sonu dermatitis Surgical History Surgical History History of partial hysterectomy Partial vaginal hysterectomy Family History Family History Grandparent Family history of glaucoma Hypertension Family history of elevated blood lipids Mother Hypertension Family history of elevated blood lipids Sibling Hypertension Family history of elevated blood lipids Social History Social History Smoking status: Never smoker Second hand tobacco smoke exposure: No Alcohol intake: current Drinks per week: 3 Substance use: never Substance use type: does not use Lack of Transportation: No Lack of Food: Never True Current Housing: I Have Housing Concerned About Future Housing: No Difficulty Paying Gas/Electric Bills: No Difficulty Paying for Meds: No Currently Unemployed: No Education: High School Diploma/GED Difficulty w/ Childcare or Family Care: No Living arrangements: with family Occupation/Education: occupation 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): Female Spiritual care concerns: No Meds Home Medications and Allergies Home Medications Medication Instructions Recorded Confirmed Type hydrochlorothiazide 12.5 mg tablet 12.5 mg PO DAILY #30 tabs 06/09/22 09/15/22 Rx losartan 25 mg tablet 25 mg PO DAILY #90 tabs 06/09/22 09/15/22 Rx simvastatin 10 mg tablet 10 mg PO DAILY #30 tabs 07/29/22 09/15/22 Rx Allergies Allergy/AdvReac Type Severity Reaction Status Date / Time latex Allergy Severe Redness of Verified 09/15/22 08:21 Skin Penicillins Allergy Severe Swelling Verified 09/15/22 08:21 Vital Signs Vital Signs - 24 hr 09/15/22 08:25 09/15/22 08:31 09/15/22 11:50 Temperature 97.1 F L Pulse Rate 112 H 93 Respiratory Rate 18 16 25 H Blood Pressure 141/86 H 126/81 133/71 Pulse Oximetry 100 100 97 Oxygen Delivery Room Air 09/15/22 12:20 Temperature 100.4 F H Pulse Rate 90 Respiratory Rate 16 Blood Pressure 117/60 Pulse Oximetry 99 Oxygen Delivery Exam Narrative: General: No acute distress, alert and oriented per baseline HEENT: Atraumatic, normocephalic, mucous membranes moist CV: Regular rate and rhythm, S1, S2 Lungs: Clear to auscultation bilaterally, no rales or crackles noted, no wheezes, good air entry Abdomen: Soft, diffusely TTP Extremities: Normal to inspection Skin: No rashes noted, no lesions or wounds seen Psych: Euthymic, normal affect H&P: Res
--- NOTE | 2022-09-15 14:22 | WPDMODSED ---
Moderate Sedation Note-Pt Data Patient Data Diagnosis: diverticulitis with pelvic abscess Present Complaint: abdominal pain Procedure to be performed/Plan: percutaneous abscess drain placement Allergies Allergy/AdvReac Type Severity Reaction Status Date / Time latex Allergy Severe Redness of Verified 09/15/22 08:21 Skin Penicillins Allergy Severe Swelling Verified 09/15/22 08:21 Home Medications Medication Instructions Recorded Confirmed Type hydrochlorothiazide 12.5 mg tablet 12.5 mg PO DAILY #30 tabs 06/09/22 06/25/22 Rx losartan 25 mg tablet 25 mg PO DAILY #90 tabs 06/09/22 06/25/22 Rx simvastatin 10 mg tablet 10 mg PO DAILY #30 tabs 07/29/22 Rx Current Medications: Active Medications Hydromorphone HCl (Hydromorphone Hcl Inj (*Crx) 1 Mg/Ml Syr) 0.5 mg IV PUSH Q4H PRN PRN Reason: Pain Rated 7-10 Ceftriaxone Sodium (Rocephin 1 Gm/Ns 50 Ml) 1 gm in 50 mls @ 100 mls/hr IVPB Q24H RAFIA Metronidazole (Flagyl 500 Mg/Iso Soln 100 Ml) 500 mg in 100 mls @ 100 mls/hr IVPB Q8HR RAFIA Sodium Chloride (Normal Saline Iv) 1,000 mls @ 150 mls/hr IV CONT .Q6H40M STA Stop: 09/15/22 16:45 Last Admin: 09/15/22 12:37 Dose: Not Given Lactated Ringer's (Lr - Lactated Ringers Iv) 1,000 mls @ 125 mls/hr IV CONT .Q8H RAFIA Last Admin: 09/15/22 11:13 Dose: 125 mls/hr Potassium Chloride 40 meq/ (Sodium Chloride) 520 mls @ 130 mls/hr IVPB ONCE ONE Stop: 09/15/22 18:14 Ondansetron HCl (Ondansetron Inj 4 Mg/2 Ml Vial) 4 mg IV PUSH Q4H PRN PRN Reason: Nausea Pantoprazole Sodium (Pantoprazole Sodium Iv 40 Mg Vial) 40 mg IV PUSH QAM RAFIA Sedation/Anesthesia: No previous sedation/anesthesia problems (including family history). [facility] Past Medical History Medical History Bunionette of left foot (~2011) Surgical removal Diverticulitis HLD (hyperlipidemia) Hypertension Poison sonu dermatitis Surgical History Surgical History History of partial hysterectomy Partial vaginal hysterectomy Family History Family History Grandparent Family history of glaucoma Hypertension Family history of elevated blood lipids Mother Hypertension Family history of elevated blood lipids Sibling Hypertension Family history of elevated blood lipids Social History Social History Smoking status: Never smoker Second hand tobacco smoke exposure: No Alcohol intake: current Drinks per week: 3 Substance use: never Substance use type: does not use Lack of Transportation: No Lack of Food: Never True Current Housing: I Have Housing Concerned About Future Housing: No Difficulty Paying Gas/Electric Bills: No Difficulty Paying for Meds: No Currently Unemployed: No Education: High School Diploma/GED Difficulty w/ Childcare or Family Care: No Living arrangements: with family Occupation/Education: occupation Additional occupation/education comments: Works in a [employer] Gender identity (if verbalized by the patient): Female Spiritual care concerns: No Mod Sed Physical Exam Physical Exam Pre Procedural Exam: Normal: Appearance, Throat, Lungs, Heart Rate and Heart Rhythm and Variation: Abdomen (ttp) Hours since solid foods: 12 Hours since liquid intake: 12 Mallampati Classification: class III Internal Medicine - PN: Obj Da Vital Signs Vital Signs: Vital Signs - 24 hr 09/15/22 08:25 09/15/22 08:31 09/15/22 11:50 Temperature 97.1 F L Pulse Rate 112 H 93 Respiratory Rate 18 16 25 H Blood Pressure 141/86 H 126/81 133/71 Pulse Oximetry 100 100 97 Oxygen Delivery Room Air 09/15/22 12:20 Temperature 100.4 F H Pulse Rate 90 Respiratory Rate 16 Blood Pressure 117/60 Pulse Oximetry 99 Oxygen Delivery Intake/Output Intake/Output: Intake & Output
[2022-09-15] MEDS: ACETAMINOPHEN 500 MG TABLET 1000 MG PO (14:49)
[2022-09-15] MEDS: POTASSIUM CHLORIDE INJ 40 MEQ in SODIUM CHLORIDE 0.9% IV 500 ML 130 MEQ IVPB (15:59)
[2022-09-15] MEDS: HYDROmorphone HCL INJ (*CRX) 1 MG/ML SYR 0.5 MG IV PUSH (21:01)
[2022-09-16] VITALS (12 sets, daily range): BP systolic 107–132; BP diastolic 47–80; PULSE 75–103; RESP 12–21; TEMP 35.9–37.2; O2SAT 96–100
[2022-09-16] MEDS: HYDROmorphone HCL INJ (*CRX) 1 MG/ML SYR 0.5 MG IV PUSH (01:42)
[2022-09-16] MEDS: ACETAMINOPHEN 500 MG TABLET 1000 MG PO ×3 (03:58→15:45)
[2022-09-16] MEDS: ONDANSETRON INJ 4 MG/2 ML VIAL IV PUSH (04:58)
[2022-09-16] MEDS: metroNIDAZOLE 500 MG/ISO 100ML 500 MG/100 ML BAG 100 MG IVPB ×3 (05:37→21:31)
[2022-09-16] MEDS: LACTATED RINGERS 1,000 ML 125 ML IV CONT (05:40)
[2022-09-16 06:10] LABS: Basophils Percent Auto 0.2 % (0.2-1.2); Eosinophils Percent Auto 0.1 % (0-4.4); Hematocrit 34.4 % (37.0-47.0); Hemoglobin 11.3 g/dL (12.0-15.0); Immature Granulocyte Percent A 0.6 % (0-0.5); Lymphocytes Absolute Auto 0.91 K/mm3 (0.9-3.2); Lymphocytes Percent Auto 5.3 % (18.3-44.2); Mean Corpuscular HGB Conc 32.8 g/dl (32-36); Mean Corpuscular Hemoglobin 32.3 pg (26-34); Mean Corpuscular Volume 98.3 fl (80-100); Mean Platelet Volume 9.9 fl (7.4-10.4); Monocytes Absolute Auto 1.6 K/mm3 (0.1-0.6); Monocytes Percent Auto 9.1 % (2.6-8.5); Neutrophils Absolute Auto 14.6 K/mm3 (1.3-6.7); Neutrophils Percent Auto 84.7 % (45.5-73.1); Platelet Count Result 363 k/mm3 (150-375); Red Cell Distribution Width 14.5 % (11.5-14.5); White Blood Count 17.2 K/mm3 (4.5-10.0)
[2022-09-16 06:17] LABS: Alanine Aminotransferase 17 U/L (6-35); Albumin Level 3.1 g/dL (3.5-5.1); Alkaline Phosphatase 88 U/L (38-126); Anion Gap 7 mmol/L (8-16); Aspartate Amino Transferase 20 U/L (14-36); Bilirubin,Total 0.4 mg/dL (0.2-1.3); Blood Urea Nitrogen 9 mg/dL (7-17); Calcium 8.7 mg/dL (8.4-10.2); Carbon Dioxide 29 mmol/L (22-30); Chloride 102 mmol/L (98-107); Estimated CRCL calculation 84 ml/min; Estimated Glomerular Filt Rate > 60; Glucose 112 mg/dL (65-110); Potassium 3.2 mmol/L (3.4-5.0); Sodium 138 mmol/L (137-145)
[2022-09-16] MEDS: PANTOPRAZOLE SODIUM IV 40 MG VIAL IV PUSH (09:06)
--- NOTE | 2022-09-16 10:00 | PM.IMPN ---
Progress Note: A&P Assessment and Plan (1) Diverticulitis of large intestine with abscess: Qualifiers: Diverticulitis bleeding: without bleeding Qualified Code(s): K57.20 - Diverticulitis of large intestine with perforation and abscess without bleeding Code(s): K57.20 - Diverticulitis of large intestine with perforation and abscess without bleeding Status: Acute Assessment and Plan: Presented with abdominal and rectal pain CT of abd/Pel showed perforated diverticulitis with multiple pelvic abscesses IV antibiotics of cipro flagyl continued pelvic drain placement scheduled for today NPO Continue IV fluids for now Appreciate general surgery consultation Change pain medications (2) HLD (hyperlipidemia): Qualifiers: Hyperlipidemia type: unspecified Qualified Code(s): E78.5 - Hyperlipidemia, unspecified Code(s): E78.5 - Hyperlipidemia, unspecified Status: Chronic Assessment and Plan: Continue home meds when able to take p.o. (3) Hypertension: Qualifiers: Hypertension type: essential hypertension Qualified Code(s): I10 - Essential (primary) hypertension Code(s): I10 - Essential (primary) hypertension Status: Chronic Assessment and Plan: Monitor blood pressure continue home meds when able to take p.o. Losartan and HCTZ held at this time BP still controlled at 125/74 (4) Acute hypokalemia: Code(s): E87.6 - Hypokalemia Status: Acute Assessment and Plan: K 3.2 on admission Replaced and currently 3.2 Replaced with 40 meq Continue to trend Replace as indicated If she remains NPO consider adding to her continuous fluids Plan DVT prophylaxis with SCDs GI prophylaxis with PPI Code status full code Time Spent With Patient Time: 48 minutes Time with patient: Greater than 35 minutes Subjective Date/time seen: 09/16/22 1000 Interval history: 09/16/22 1000 Patient is lying in bed. Patient did have a horrible night and stated that she was having some nausea and vomiting. Evidently she told the nurse she was Tylenol however her pain was going back up and she end up getting morphine. She stated that she got the morphine and she was miserable as she started to have nausea and vomiting awoke her from her sleep. Her pain was back up to a 10/10. Patient did get Tylenol and her pain is been better. She is requesting the morphine be taken off of her Mar and she agreed to have [place] put back on for breakthrough pain that she would ask for if she needed it. She is having some diarrhea which she stated she has had all morning. She denies any current blood in her stool. She is a little nervous about getting the perc drain placed however it sounds as if she has a plan and she is going to get surgery soon anyway. Will get some stool cultures for the diarrhea. She denies any chest pain, shortness a breath, nausea, vomiting, constipation, fevers, sweats, chills. 09/15/22? 13:55 62-year-old female with history of diverticulitis, hyperlipidemia, hypertension is presenting with abdominal and rectal pain.? She reports constipation of the last few days the required straining to have a bowel movement and subsequent rectal pain.? She did try an enema yesterday that did give her some stool output but pain worsened.? She has had intermittent nausea and vomiting over the last 2 weeks progressively worsening constipation and lower abdominal pain.? She denies chest pain or shortness of breath.? No fevers or chills. In the ER, CT scan was performed showing perforated sigmoid diverticulitis with multiple pelvic abscesses.? General surgery consultation was ordered and they recommended referral to IR for pelvic drain placement.? The patient was also started on IV Rocephin and Flagyl. Review of Systems Review of Systems: All systems reviewed & are unremarkable except as noted in HPI and below
--- NOTE | 2022-09-16 13:00 | PC.NURSE ---
To Xray via stretcher.
--- NOTE | 2022-09-16 13:37 | WPDMODSED ---
Moderate Sedation Note-Pt Data Patient Data Diagnosis: diverticulitis with pelvic abscess Present Complaint: lower abdominal pain Procedure to be performed/Plan: percutaneous abscess drain placement Allergies Allergy/AdvReac Type Severity Reaction Status Date / Time latex Allergy Severe Redness of Verified 09/15/22 08:21 Skin Penicillins Allergy Severe Swelling Verified 09/15/22 08:21 Home Medications Medication Instructions Recorded Confirmed Type hydrochlorothiazide 12.5 mg tablet 12.5 mg PO DAILY #30 tabs 06/09/22 09/15/22 Rx losartan 25 mg tablet 25 mg PO DAILY #90 tabs 06/09/22 09/15/22 Rx simvastatin 10 mg tablet 10 mg PO DAILY #30 tabs 07/29/22 09/15/22 Rx Current Medications: Active Medications Acetaminophen (Acetaminophen 500 Mg Tablet) 1,000 mg PO Q6H PRN PRN Reason: Mild Pain (1-10) Or Fever Hydrocodone Bitart/Acetaminophen (Hydrocodone/Acetaminophen (*Crx) 5-325 Mg Tablet) 1 tab PO Q6H PRN PRN Reason: Breakthrough Pain Ceftriaxone Sodium (Rocephin 1 Gm/Ns 50 Ml) 1 gm in 50 mls @ 100 mls/hr IVPB Q24H [facility] Last Infusion: 09/16/22 09:36 Dose: Infused Metronidazole (Flagyl 500 Mg/Iso Soln 100 Ml) 500 mg in 100 mls @ 100 mls/hr IVPB Q8HR [facility] Last Admin: 09/16/22 05:37 Dose: 100 mls/hr Lactated Ringer's (Lr - Lactated Ringers Iv) 1,000 mls @ 125 mls/hr IV CONT .Q8H [facility] Last Admin: 09/16/22 05:40 Dose: 125 mls/hr Ondansetron HCl (Ondansetron Inj 4 Mg/2 Ml Vial) 4 mg IV PUSH Q4H PRN PRN Reason: Nausea Last Admin: 09/16/22 04:58 Dose: 4 mg Pantoprazole Sodium (Pantoprazole Sodium Iv 40 Mg Vial) 40 mg IV PUSH QAM [facility] Last Admin: 09/16/22 09:06 Dose: 40 mg Sedation/Anesthesia: No previous sedation/anesthesia problems (including family history). [facility] Past Medical History Medical History Bunionette of left foot (~2011) Surgical removal Diverticulitis HLD (hyperlipidemia) Hypertension Poison sonu dermatitis Surgical History Surgical History History of partial hysterectomy Partial vaginal hysterectomy Family History Family History Grandparent Family history of glaucoma Hypertension Family history of elevated blood lipids Mother Hypertension Family history of elevated blood lipids Sibling Hypertension Family history of elevated blood lipids Social History Social History Smoking status: Never smoker Second hand tobacco smoke exposure: No Alcohol intake: current Drinks per week: 3 Substance use: never Substance use type: does not use Lack of Transportation: No Lack of Food: Never True Current Housing: I Have Housing Concerned About Future Housing: No Difficulty Paying Gas/Electric Bills: No Difficulty Paying for Meds: No Currently Unemployed: No Education: High School Diploma/GED Difficulty w/ Childcare or Family Care: No Living arrangements: with family Occupation/Education: occupation Additional occupation/education comments: Works in a [employer] Gender identity (if verbalized by the patient): Female Spiritual care concerns: No Mod Sed Physical Exam Physical Exam Pre Procedural Exam: Normal: Eyes, Throat, Lungs, Heart Rate and Heart Rhythm and Variation: Abdomen (TTP) Hours since solid foods: 12 Hours since liquid intake: 12 Mallampati Classification: class III Internal Medicine - PN: Obj Da Vital Signs Vital Signs: Vital Signs - 24 hr 09/15/22 14:49 09/15/22 20:47 09/15/22 21:30 Temperature 101.4 F H 97.8 F Pulse Rate 88 88 Respiratory Rate 20 Blood Pressure 123/71 Pulse Oximetry 95 95 Oxygen Delivery Room Air Fraction of Inspired Oxygen 21 09/15/22 19:50 09/16/22 05:52 09/16/22 09:05 Temperature 97.7 F Pulse Rate 103 H Respiratory Rate 20
[2022-09-16] MEDS: fentaNYL CITRATE INJ (*CRX) 100 MCG/2 ML VIAL IV PUSH (14:00)
--- NOTE | 2022-09-16 14:45 | PM.PNGS ---
Progress Note: A&P Assessment and Plan (1) Diverticulitis of large intestine with abscess: Qualifiers: Diverticulitis bleeding: without bleeding Qualified Code(s): K57.20 - Diverticulitis of large intestine with perforation and abscess without bleeding Code(s): K57.20 - Diverticulitis of large intestine with perforation and abscess without bleeding Status: Acute Assessment and Plan: Will start clear liquids now that percutaneous drain is in place Follow WBC and abdominal exam for signs of resolution Subjective Subjective Date/Time Seen: 09/16/22 14:45 Interval history: Patient seen in CT scanner just after procedure done. No new changes. Exam GI: Inspection: normal to inspection GI Palp: Yes Soft to palpation, Yes Tenderness to palpation present (GI) (Left lower quadrant), No Guarding due to palpation present (GI), No Hernia present and No Rebound tenderness present Percussion: Yes normal to percussion Auscultation: normal bowel sounds Objective Data Vital Signs Vital Signs: Vital Signs - 24 hr 09/15/22 14:49 09/15/22 20:47 09/15/22 21:30 Temperature 38.6 C H 36.6 C Pulse Rate 88 88 Respiratory Rate 20 Blood Pressure 123/71 Pulse Oximetry 95 95 Oxygen Delivery Room Air Fraction of Inspired Oxygen 21 09/15/22 19:50 09/16/22 05:52 09/16/22 09:05 Temperature 36.5 C Pulse Rate 103 H Respiratory Rate 20 Blood Pressure 125/74 Pulse Oximetry 99 Oxygen Delivery Room Air Room Air Fraction of Inspired Oxygen 21 Intake/Output Intake/Output: Intake & Output 09/13/22 09/14/22 09/15/22 09/16/22 23:59 23:59 23:59 23:59 Intake Total 2350 1125 Balance 2350 1125 Meds/Results Medications: Active Medications Generic Name Dose Route Start Last Admin Trade Name Freq PRN Reason Stop Dose Admin Acetaminophen 1,000 mg 09/16/22 12:08 Acetaminophen 500 Mg Tablet PO Q6H PRN Mild Pain (1-10) Or Fever Hydrocodone Bitart/Acetaminophen 1 tab 09/16/22 12:07 Hydrocodone/Acetaminophen (*Crx) 5-325 Mg Tablet PO Q6H PRN Breakthrough Pain Ceftriaxone Sodium 1 gm in 50 mls @ 100 mls/hr 09/16/22 09:00 09/16/22 09:36 Rocephin 1 Gm/Ns 50 Ml IVPB Infused Q24H [facility] Infusion Metronidazole 500 mg in 100 mls @ 100 mls/hr 09/15/22 16:00 09/16/22 05:37 Flagyl 500 Mg/Iso Soln 100 Ml IVPB 100 mls/hr Q8HR [facility] Administration Lactated Ringer's 1,000 mls @ 125 mls/hr 09/15/22 10:50 09/16/22 05:40 Lr - Lactated Ringers Iv IV CONT 125 mls/hr .Q8H [facility] Administration Ondansetron HCl 4 mg 09/15/22 10:50 09/16/22 04:58 Ondansetron Inj 4 Mg/2 Ml Vial IV PUSH 4 mg Q4H PRN Administration Nausea Pantoprazole Sodium 40 mg 09/16/22 09:00 09/16/22 09:06 Pantoprazole Sodium Iv 40 Mg Vial IV PUSH 40 mg QAM [facility] Administration Radiology Results: ITS Impressions Abdomen/Pelvis CT 09/15/22 09:44 IMPRESSION: 1. Perforated sigmoid diverticulitis with multiple pelvic abscesses. Surgical evaluation is recommended. Labs Labs: Laboratory Results - last 24 hr 09/16/22 05:46 WBC 17.2 H RBC 3.50 L Hgb 11.3 L Hct 34.4 L MCV 98.3 MCH 32.3 MCHC 32.8 RDW 14.5 Plt Count 363 MPV 9.9 Immature Gran % (Auto) 0.6 H Neut % (Auto) 84.7 H Lymph % (Auto) 5.3 L [place] % (Auto) 9.1 H Eos % (Auto) 0.1 Baso % (Auto) 0.2 Lymph # (Auto) 0.91 [place] # (Auto) 1.6 H Eos # (Auto) 0.0 Baso # (Auto) 0.0 Abs Immat Gran (auto) 0.10 H Absolute Neuts (auto) 14.6 H Absolute Nucleated RBC 0.0 Nucleated RBC % 0.0 Sodium 138 Potassium 3.2 L Chloride 102 Carbon Dioxide 29 Anion Gap 7 L BUN 9 Creatinine 0.50 L Estim Creat Clear Calc 84 Estimated GFR > 60 Glucose 112 H Calcium 8.7 Total Bilirubin 0.4 AST 20 ALT 17 Alkaline Phosphatase 88 Total Protein 6.0 L Albumin 3.1 L
--- NOTE | 2022-09-16 15:05 | PC.NURSE ---
Back from X-ray via stretcher.
[2022-09-16] MEDS: POTASSIUM CHLORIDE 20 MEQ ER TABLET 40 MEQ PO (15:09)
--- NOTE | 2022-09-16 15:56 | PC.NURSE ---
Received report from YASH Reeves [address] [place] [address]. Patient transported via stretcher to CT room. Dr. Eugene and Karina medical technologist chief at table side. Time out done. 1400- Fentanyl 50mcg IVP given. Patient alert and oriented x 4.1406- incision made per MD. 1415- Fentanyl 50mcg IVP given for discomfort. 1425-Drain placed. 50ml Light brown purulent drainage removed per Dr. Eugene noted. 1435- Procedure completed . 1505- patient returned to room 327 without issue via stretcher.
[2022-09-16] MEDS: HYDROcodone/acetaminophen (*CRX) 5-325 MG TABLET 1 TAB PO ×2 (16:53→21:40)
[2022-09-16] MEDS: LACTATED RINGERS 1,000 ML 75 ML IV CONT (21:42)
[2022-09-17] MEDS: HYDROcodone/acetaminophen (*CRX) 5-325 MG TABLET 1 TAB PO ×3 (03:13→17:12)
[2022-09-17 05:20] VITALS: BP 125/69; PULSE 85; RESP 18; TEMP 36.6; O2SAT 100
[2022-09-17] MEDS: metroNIDAZOLE 500 MG/ISO 100ML 500 MG/100 ML BAG 100 MG IVPB ×2 (06:33→14:17)
[2022-09-17 06:38] LABS: Basophils Percent Auto 0.2 % (0.2-1.2); Eosinophils Absolute Auto 0.1 K/mm3 (0-0.3); Eosinophils Percent Auto 0.4 % (0-4.4); Hematocrit 34.3 % (37.0-47.0); Hemoglobin 11.3 g/dL (12.0-15.0); Immature Granulocyte Absolute 0.08 K/mm3 (0.00-0.031); Immature Granulocyte Percent A 0.5 % (0-0.5); Lymphocytes Absolute Auto 1.53 K/mm3 (0.9-3.2); Lymphocytes Percent Auto 10.5 % (18.3-44.2); Mean Corpuscular HGB Conc 32.9 g/dl (32-36); Mean Corpuscular Hemoglobin 32.9 pg (26-34); Mean Platelet Volume 9.6 fl (7.4-10.4); Monocytes Percent Auto 6.7 % (2.6-8.5); Neutrophils Absolute Auto 11.9 K/mm3 (1.3-6.7); Neutrophils Percent Auto 81.7 % (45.5-73.1); Platelet Count Result 371 k/mm3 (150-375); Red Blood Count 3.43 M/mm3 (4.2-5.4); Red Cell Distribution Width 14.6 % (11.5-14.5); White Blood Count 14.6 K/mm3 (4.5-10.0)
[2022-09-17 06:55] LABS: Alanine Aminotransferase 14 U/L (6-35); Albumin Level 2.8 g/dL (3.5-5.1); Alkaline Phosphatase 74 U/L (38-126); Anion Gap 2 mmol/L (8-16); Aspartate Amino Transferase 17 U/L (14-36); Bilirubin,Total 0.3 mg/dL (0.2-1.3); Blood Urea Nitrogen 11 mg/dL (7-17); Calcium 8.6 mg/dL (8.4-10.2); Carbon Dioxide 33 mmol/L (22-30); Chloride 105 mmol/L (98-107); Estimated CRCL calculation 84 ml/min; Estimated Glomerular Filt Rate > 60; Glucose 91 mg/dL (65-110); Potassium 3.6 mmol/L (3.4-5.0); Sodium 140 mmol/L (137-145)
[2022-09-17 08:05] VITALS: PULSE 77; O2SAT 93
[2022-09-17] MEDS: ACETAMINOPHEN 500 MG TABLET 1000 MG PO ×2 (08:05→19:50)
[2022-09-17] MEDS: PANTOPRAZOLE SODIUM IV 40 MG VIAL IV PUSH (08:11)
--- NOTE | 2022-09-17 11:00 | PM.IMPN ---
Progress Note: A&P Assessment and Plan (1) Diverticulitis of large intestine with abscess: Qualifiers: Diverticulitis bleeding: without bleeding Qualified Code(s): K57.20 - Diverticulitis of large intestine with perforation and abscess without bleeding Code(s): K57.20 - Diverticulitis of large intestine with perforation and abscess without bleeding Status: Acute Assessment and Plan: Presented with abdominal and rectal pain CT of abd/Pel showed perforated diverticulitis with multiple pelvic abscesses IV antibiotics of cipro flagyl continued pelvic drain placement draining a thick red purulent drainage continue clear liquids diet advancement per surgery Continue IV fluids for now Appreciate general surgery consultation Change pain medications (2) HLD (hyperlipidemia): Qualifiers: Hyperlipidemia type: unspecified Qualified Code(s): E78.5 - Hyperlipidemia, unspecified Code(s): E78.5 - Hyperlipidemia, unspecified Status: Chronic Assessment and Plan: continue statin drug (3) Hypertension: Qualifiers: Hypertension type: essential hypertension Qualified Code(s): I10 - Essential (primary) hypertension Code(s): I10 - Essential (primary) hypertension Status: Chronic Assessment and Plan: Monitor blood pressure continue home meds when able to take p.o. Losartan and HCTZ held at this time BP still controlled at 125/69 (4) Acute hypokalemia: Code(s): E87.6 - Hypokalemia Status: Acute Assessment and Plan: K 3.2 on admission Replaced and currently 3.6 Replaced with 40 meq Continue to trend Replace as indicated If she remains NPO consider adding to her continuous fluids Plan DVT prophylaxis with SCDs GI prophylaxis with PPI Code status full code Time Spent With Patient Time: 37 minutes Time with patient: Greater than 35 minutes Subjective Date/time seen: 09/17/22 1100 Interval history: 09/17/22 1100 patient stated that she is doing better today. She stated that she did have some pretty significant pain that Tylenol did not help. She did state that the [place] was helping her. Her drain is in place and is draining a red thick purulence drainage. She denies any current chest pain, nausea, vomiting, diarrhea, constipation, fevers sweats or chills. She is concerned about taking the drain home and stated that she was told if in 48 hours did resolve that that she would have to take the drain home explained her how easy was empty and to manage in the drainage. 09/16/22 1000 Patient is lying in bed. Patient did have a horrible night and stated that she was having some nausea and vomiting. Evidently she told the nurse she was Tylenol however her pain was going back up and she end up getting morphine. She stated that she got the morphine and she was miserable as she started to have nausea and vomiting awoke her from her sleep. Her pain was back up to a 10/10. Patient did get Tylenol and her pain is been better. She is requesting the morphine be taken off of her Mar and she agreed to have [place] put back on for breakthrough pain that she would ask for if she needed it. She is having some diarrhea which she stated she has had all morning. She denies any current blood in her stool. She is a little nervous about getting the perc drain placed however it sounds as if she has a plan and she is going to get surgery soon anyway. Will get some stool cultures for the diarrhea. She denies any chest pain, shortness a breath, nausea, vomiting, constipation, fevers, sweats, chills. 09/15/22? 13:55 62-year-old female with history of diverticulitis, hyperlipidemia, hypertension is presenting with abdominal and rectal pain.? She reports constipation of the last few days the required straining to have a bowel movement and subsequent rectal pain.? She
[2022-09-17] MEDS: LACTATED RINGERS 1,000 ML 75 ML IV CONT (11:41)
[2022-09-17 14:35] VITALS: BP 127/78; PULSE 86; RESP 16; TEMP 37.1; O2SAT 98
--- NOTE | 2022-09-17 15:10 | PM.PNGS ---
Progress Note: A&P Assessment and Plan (1) Diverticulitis of large intestine with abscess: Qualifiers: Diverticulitis bleeding: without bleeding Qualified Code(s): K57.20 - Diverticulitis of large intestine with perforation and abscess without bleeding Code(s): K57.20 - Diverticulitis of large intestine with perforation and abscess without bleeding Status: Acute Assessment and Plan: Advance diet as tolerated to Low Fiber Diet Possibly home tomorrow if continuing to improve Will likely need to keep drain in at least 1 week until abscess completely resolves. Subjective Subjective Date/Time Seen: 09/17/22 15:10 Interval history: Tolerating clear liquids. Bowels moving. Pain improving. Exam GI: Inspection: non-distended and other (Posterior drain with purulent output) GI Palp: Yes Soft to palpation, No Tenderness to palpation present (GI) and No Guarding due to palpation present (GI) Auscultation: normal bowel sounds Objective Data Vital Signs Vital Signs: Vital Signs - 24 hr 09/16/22 15:15 09/16/22 15:30 09/16/22 16:49 Temperature 35.9 C L Pulse Rate 80 79 86 Respiratory Rate 16 12 18 Blood Pressure 124/63 110/63 122/58 L Pulse Oximetry 99 98 99 Oxygen Delivery Fraction of Inspired Oxygen 09/16/22 21:15 09/16/22 20:00 09/17/22 05:20 Temperature 36.7 C 36.6 C Pulse Rate 75 75 85 Respiratory Rate 16 16 18 Blood Pressure 107/47 L 125/69 Pulse Oximetry 98 98 100 Oxygen Delivery Room Air Fraction of Inspired Oxygen 09/17/22 08:05 Temperature Pulse Rate 77 Respiratory Rate Blood Pressure Pulse Oximetry 93 Oxygen Delivery Room Air Fraction of Inspired Oxygen Intake/Output Intake/Output: Intake & Output 09/14/22 09/15/22 09/16/22 09/17/22 23:59 23:59 23:59 23:59 Intake Total 2350 2815 1150 Output Total 30 30 Balance 2350 2785 1120 Meds/Results Medications: Active Medications Generic Name Dose Route Start Last Admin Trade Name Freq PRN Reason Stop Dose Admin Acetaminophen 1,000 mg 09/16/22 12:08 09/17/22 08:05 Acetaminophen 500 Mg Tablet PO 1,000 mg Q6H PRN Administration Mild Pain (1-10) Or Fever Hydrocodone Bitart/Acetaminophen 1 tab 09/16/22 12:07 09/17/22 11:42 Hydrocodone/Acetaminophen (*Crx) 5-325 Mg Tablet PO 1 tab Q6H PRN Administration Breakthrough Pain Ceftriaxone Sodium 1 gm in 50 mls @ 100 mls/hr 09/16/22 09:00 09/17/22 08:41 Rocephin 1 Gm/Ns 50 Ml IVPB Infused Q24H [facility] Infusion Metronidazole 500 mg in 100 mls @ 100 mls/hr 09/15/22 16:00 09/17/22 14:17 Flagyl 500 Mg/Iso Soln 100 Ml IVPB 100 mls/hr Q8HR [facility] Administration Ondansetron HCl 4 mg 09/15/22 10:50 09/16/22 04:58 Ondansetron Inj 4 Mg/2 Ml Vial IV PUSH 4 mg Q4H PRN Administration Nausea Pantoprazole Sodium 40 mg 09/16/22 09:00 09/17/22 08:11 Pantoprazole Sodium Iv 40 Mg Vial IV PUSH 40 mg QAM [facility] Administration Simvastatin 10 mg 09/17/22 14:15 Simvastatin 10 Mg Tablet PO DAILY [facility] Radiology Results: ITS Impressions Abdomen/Pelvis CT 09/15/22 09:44 IMPRESSION: 1. Perforated sigmoid diverticulitis with multiple pelvic abscesses. Surgical evaluation is recommended. Catheter Placement CT 09/16/22 15:27 IMPRESSION: 1. Successful CT-guided pelvic abscess drainage. 2. 50 mL fluid was sent for aerobic and anaerobic cultures. 3. The catheter will be managed by Dr. Thakkar. Labs Labs: Laboratory Results - last 24 hr 09/17/22 06:23 WBC 14.6 H RBC 3.43 L Hgb 11.3 L Hct 34.3 L MCV 100.0 MCH 32.9 MCHC 32.9 RDW 14.6 H Plt Count 371 MPV 9.6 Immature Gran % (Auto) 0.5 Neut % (Auto) 81.7 H Lymph % (Auto) 10.5 L [place] % (Auto) 6.7 Eos % (Auto) 0.4 Baso % (Auto) 0.2 Lymph # (Auto) 1.53 [place] # (Auto) 1.0 H Eos # (Auto) 0.1 Baso # (Auto) 0.0 Abs Immat Gran (auto) 0.08 H Absolute Neuts (auto) 11.9 H Absolute
[2022-09-17] MEDS: SIMVASTATIN 10 MG TABLET PO (16:25)
[2022-09-17 20:44] VITALS: BP 145/72; PULSE 76; RESP 18; TEMP 36.8; O2SAT 96
[2022-09-18] MEDS: metroNIDAZOLE 500 MG/ISO 100ML 500 MG/100 ML BAG 100 MG IVPB ×2 (00:01→06:03)
[2022-09-18] MEDS: HYDROcodone/acetaminophen (*CRX) 5-325 MG TABLET 1 TAB PO ×3 (00:06→12:44)
[2022-09-18 06:00] VITALS: BP 147/78; PULSE 86; RESP 18; TEMP 36.3; O2SAT 99
[2022-09-18 06:30] LABS: Basophils Percent Auto 0.4 % (0.2-1.2); Eosinophils Absolute Auto 0.1 K/mm3 (0-0.3); Hematocrit 35.1 % (37.0-47.0); Hemoglobin 11.6 g/dL (12.0-15.0); Immature Granulocyte Absolute 0.08 K/mm3 (0.00-0.031); Immature Granulocyte Percent A 0.7 % (0-0.5); Lymphocytes Absolute Auto 1.47 K/mm3 (0.9-3.2); Lymphocytes Percent Auto 13.7 % (18.3-44.2); Mean Corpuscular Volume 99.7 fl (80-100); Mean Platelet Volume 9.7 fl (7.4-10.4); Monocytes Absolute Auto 0.8 K/mm3 (0.1-0.6); Monocytes Percent Auto 7.6 % (2.6-8.5); Neutrophils Absolute Auto 8.2 K/mm3 (1.3-6.7); Neutrophils Percent Auto 76.6 % (45.5-73.1); Platelet Count Result 411 k/mm3 (150-375); Red Blood Count 3.52 M/mm3 (4.2-5.4); Red Cell Distribution Width 14.8 % (11.5-14.5); White Blood Count 10.7 K/mm3 (4.5-10.0)
[2022-09-18 06:48] LABS: Alanine Aminotransferase 13 U/L (6-35); Albumin Level 2.9 g/dL (3.5-5.1); Alkaline Phosphatase 76 U/L (38-126); Anion Gap 5 mmol/L (8-16); Aspartate Amino Transferase 17 U/L (14-36); Bilirubin,Total 0.3 mg/dL (0.2-1.3); Blood Urea Nitrogen 8 mg/dL (7-17); Calcium 8.5 mg/dL (8.4-10.2); Carbon Dioxide 30 mmol/L (22-30); Chloride 104 mmol/L (98-107); Estimated CRCL calculation 84 ml/min; Estimated Glomerular Filt Rate > 60; Glucose 84 mg/dL (65-110); Magnesium 1.9 mg/dL (1.6-2.3); Potassium 3.2 mmol/L (3.4-5.0); Sodium 139 mmol/L (137-145)
--- NOTE | 2022-09-18 08:24 | PM.IMPN ---
Progress Note: A&P Assessment and Plan (1) Diverticulitis of large intestine with abscess: Qualifiers: Diverticulitis bleeding: without bleeding Qualified Code(s): K57.20 - Diverticulitis of large intestine with perforation and abscess without bleeding Code(s): K57.20 - Diverticulitis of large intestine with perforation and abscess without bleeding Status: Acute Assessment and Plan: Presented with abdominal and rectal pain CT of abd/Pel showed perforated diverticulitis with multiple pelvic abscesses IV antibiotics of cipro flagyl continued pelvic drain placement draining a thick red purulent drainage continue clear liquids diet advancement per surgery Continue IV fluids for now, can most likely be DC'd at this time Appreciate general surgery consultation Change pain medications (2) HLD (hyperlipidemia): Qualifiers: Hyperlipidemia type: unspecified Qualified Code(s): E78.5 - Hyperlipidemia, unspecified Code(s): E78.5 - Hyperlipidemia, unspecified Status: Chronic Assessment and Plan: continue statin drug (3) Hypertension: Qualifiers: Hypertension type: essential hypertension Qualified Code(s): I10 - Essential (primary) hypertension Code(s): I10 - Essential (primary) hypertension Status: Chronic Assessment and Plan: Monitor blood pressure continue home meds when able to take p.o. Losartan and HCTZ held at this time BP still controlled at 147/78 (4) Acute hypokalemia: Code(s): E87.6 - Hypokalemia Status: Acute Assessment and Plan: K 3.2 on admission Replaced and currently 3.2 Replaced with 40 meq again Continue to trend Replace as indicated Plan DVT prophylaxis with SCDs GI prophylaxis with PPI Code status full code Time Spent With Patient Time: 43 minutes Time with patient: Greater than 35 minutes Subjective Date/time seen: 09/18/22 08:24 Interval history: 09/18/22 Patient is 59-year-old female with a past medical history of diverticulitis, hyperlipidemia, hypertension who presented the ED with complaints of abdominal pain. CT of the abdomen pelvis was performed showed perforated sigmoid diverticulitis with multiple pelvic abscesses. General surgery was consulted and patient was taken to IR for percutaneous pelvic drain. Drain has been draining a purulent red thick fluid. Patient was also started on Cipro and Flagyl for infection control. WBCs were elevated at 20,000 and currently 10.7. Patient has been up walking around and is doing well. Pain medications were given for pain control. Potassium is noted to be low low and has been replaced appropriately. Currently patient denies any current chest pain, shortness a breath, nausea, vomiting, diarrhea constipation. At this time patient is stable for discharge for labs and vital signs. Patient will need to follow-up with general surgery at a later time for the drain removal. Drain instructions and education have been given to the patient and Patient is to record findings from drainage every day. patient will most likely need colectomy at some point however infection control is important at this time. Patient will need to follow up with General surgery after discharge. 09/17/22 1100 patient stated that she is doing better today. She stated that she did have some pretty significant pain that Tylenol did not help. She did state that the [place] was helping her. Her drain is in place and is draining a red thick purulence drainage. She denies any current chest pain, nausea, vomiting, diarrhea, constipation, fevers sweats or chills. She is concerned about taking the drain home and stated that she was told if in 48 hours did resolve that that she would have to take the drain home explained her how easy was empty and to manage in the drainage. 09/16/22 1000 Patient is power
[2022-09-18] MEDS: SIMVASTATIN 10 MG TABLET PO (08:39)
[2022-09-18] MEDS: PANTOPRAZOLE SODIUM IV 40 MG VIAL IV PUSH (08:39)
--- NOTE | 2022-09-18 09:30 | PM.DS ---
DS: Admitting Diagnosis Discharge Date 09/18/22? 0930 Admitting Diagnosis diverticulitis with abscess DS: Discharge Diagnosis Discharge Diagnosis (1) Diverticulitis of large intestine with abscess: Qualifiers: Diverticulitis bleeding: without bleeding Qualified Code(s): K57.20 - Diverticulitis of large intestine with perforation and abscess without bleeding Code(s): K57.20 - Diverticulitis of large intestine with perforation and abscess without bleeding Status: Acute Assessment and Plan: Presented with abdominal and rectal pain CT of abd/Pel showed perforated diverticulitis with multiple pelvic abscesses IV antibiotics of cipro flagyl continued pelvic drain placement draining a thick red purulent drainage continue clear liquids diet advancement per surgery Continue IV fluids for now, can most likely be DC'd at this time Appreciate general surgery consultation Change pain medications (2) HLD (hyperlipidemia): Qualifiers: Hyperlipidemia type: unspecified Qualified Code(s): E78.5 - Hyperlipidemia, unspecified Code(s): E78.5 - Hyperlipidemia, unspecified Status: Chronic Assessment and Plan: continue statin drug (3) Hypertension: Qualifiers: Hypertension type: essential hypertension Qualified Code(s): I10 - Essential (primary) hypertension Code(s): I10 - Essential (primary) hypertension Status: Chronic Assessment and Plan: Monitor blood pressure continue home meds when able to take p.o. Losartan and HCTZ held at this time BP still controlled at 147/78 (4) Acute hypokalemia: Code(s): E87.6 - Hypokalemia Status: Acute Assessment and Plan: K 3.2 on admission Replaced and currently 3.2 Replaced with 40 meq again Continue to trend Replace as indicated Plan DVT prophylaxis with SCDs GI prophylaxis with PPI Code status full code DS: Summary Hospital Course Hospital Course: Patient is 59-year-old female with a past medical history of diverticulitis, hyperlipidemia, hypertension who presented the ED with complaints of abdominal pain. ? CT of the abdomen pelvis was performed showed perforated sigmoid diverticulitis with multiple pelvic abscesses.? General surgery was consulted and patient was taken to IR for percutaneous pelvic drain.? Drain has been draining a purulent red thick fluid.? Patient was also started on Cipro and Flagyl for infection control.? WBCs were elevated at 20,000 and currently 10.7.? Patient has been up walking around and is doing well.? Pain medications were given for pain control.? Potassium is noted to be low low and has been replaced appropriately.? Currently patient denies any current chest pain, shortness a breath, nausea, vomiting, diarrhea constipation.? At this time patient is stable for discharge for labs and vital signs.? Patient will need to follow-up with general surgery at a later time for the drain removal.? Drain instructions and education have been given to the patient and Patient is to record findings from drainage every day. patient will most likely need colectomy at some point however infection control is important at this time.? Patient will need to follow up with General surgery after discharge. Antibiotics were discussed with surgery who advised Bactrim and Flagyl for 10 days Status at Discharge Functional status at discharge: independent ambulation Overall status at discharge: patient is progressing back to baseline Time Spent with Patient Time attestation: Total time spent providing and/or coordinating discharge services: 37 minutes Time spent: Greater than 30 minutes Specific discharge activities: Diagnostic testing, chart review, developing a treatment plan, education, care coordination documentation, physical exam, result review Exam Narrative: General: well-nourished, well-appearing 62-yea
[2022-09-18] MEDS: hydroCHLOROthiazide 12.5 MG CAPSULE PO (09:55)
[2022-09-18] MEDS: LOSARTAN POTASSIUM 25 MG TABLET PO (09:55)
--- NOTE | 2022-09-18 11:43 | PM.PNGS ---
Progress Note: A&P Assessment and Plan (1) Diverticulitis of large intestine with abscess: Qualifiers: Diverticulitis bleeding: without bleeding Qualified Code(s): K57.20 - Diverticulitis of large intestine with perforation and abscess without bleeding Code(s): K57.20 - Diverticulitis of large intestine with perforation and abscess without bleeding Status: Acute Assessment and Plan: OK to discharge today Continue antibiotics for 7-10 more days Low fiber diet Will likely need to keep drain in at least 1 week until abscess completely resolves. F/u in office in 1 week Subjective Subjective Date/Time Seen: 09/18/22 11:43 Interval history: Tolerating low fiber diet. Bowels moving. Still having a little tailbone pain, but no abdominal pain. Exam GI: Inspection: non-distended and other (Posterior drain with purulent output) GI Palp: Yes Soft to palpation, No Tenderness to palpation present (GI) and No Guarding due to palpation present (GI) Auscultation: normal bowel sounds Objective Data Vital Signs Vital Signs: Vital Signs - 24 hr 09/17/22 14:35 09/17/22 20:44 09/18/22 06:00 Temperature 37.1 C 36.8 C 36.3 C L Pulse Rate 86 76 86 Respiratory Rate 16 18 18 Blood Pressure 127/78 145/72 H 147/78 H Pulse Oximetry 98 96 99 Oxygen Delivery 09/18/22 08:45 Temperature Pulse Rate Respiratory Rate Blood Pressure Pulse Oximetry Oxygen Delivery Room Air Intake/Output Intake/Output: Intake & Output 09/15/22 09/16/22 09/17/22 09/18/22 23:59 23:59 23:59 23:59 Intake Total 2350 2815 1450 490 Output Total 30 80 30 Balance 2350 2785 1370 460 Meds/Results Medications: Active Medications Generic Name Dose Route Start Last Admin Trade Name Freq PRN Reason Stop Dose Admin Acetaminophen 1,000 mg 09/16/22 12:08 09/17/22 19:50 Acetaminophen 500 Mg Tablet PO 1,000 mg Q6H PRN Administration Mild Pain (1-10) Or Fever Hydrocodone Bitart/Acetaminophen 1 tab 09/16/22 12:07 09/18/22 06:02 Hydrocodone/Acetaminophen (*Crx) 5-325 Mg Tablet PO 1 tab Q6H PRN Administration Breakthrough Pain Hydrochlorothiazide 12.5 mg 09/18/22 09:00 09/18/22 09:55 Hydrochlorothiazide 12.5 Mg Capsule PO 12.5 mg DAILY RAFIA Administration Ceftriaxone Sodium 1 gm in 50 mls @ 100 mls/hr 09/16/22 09:00 09/18/22 09:09 Rocephin 1 Gm/Ns 50 Ml IVPB Infused Q24H RAFIA Infusion Metronidazole 500 mg in 100 mls @ 100 mls/hr 09/15/22 16:00 09/18/22 07:03 Flagyl 500 Mg/Iso Soln 100 Ml IVPB Infused Q8HR RAFIA Infusion Losartan Potassium 25 mg 09/18/22 09:00 09/18/22 09:55 Losartan Potassium 25 Mg Tablet PO 25 mg DAILY RAFIA Administration Ondansetron HCl 4 mg 09/15/22 10:50 09/16/22 04:58 Ondansetron Inj 4 Mg/2 Ml Vial IV PUSH 4 mg Q4H PRN Administration Nausea Pantoprazole Sodium 40 mg 09/16/22 09:00 09/18/22 08:39 Pantoprazole Sodium Iv 40 Mg Vial IV PUSH 40 mg QAM RAFIA Administration Simvastatin 10 mg 09/17/22 14:15 09/18/22 08:39 Simvastatin 10 Mg Tablet PO 10 mg DAILY RAFIA Administration Radiology Results: ITS Impressions Abdomen/Pelvis CT 09/15/22 09:44 IMPRESSION: 1. Perforated sigmoid diverticulitis with multiple pelvic abscesses. Surgical evaluation is recommended. Catheter Placement CT 09/16/22 15:27 IMPRESSION: 1. Successful CT-guided pelvic abscess drainage. 2. 50 mL fluid was sent for aerobic and anaerobic cultures. 3. The catheter will be managed by Dr. Thakkar. Labs Labs: Laboratory Results - last 24 hr 09/18/22 05:52 WBC 10.7 H RBC 3.52 L Hgb 11.6 L Hct 35.1 L MCV 99.7 MCH 33.0 MCHC 33.0 RDW 14.8 H Plt Count 411 H MPV 9.7 Immature Gran % (Auto) 0.7 H Neut % (Auto) 76.6 H Lymph % (Auto) 13.7 L [place] % (Auto) 7.6 Eos % (Auto) 1.0 Baso % (Auto) 0.4 Lymph # (Auto) 1.47 [place] # (Auto) 0.8 H Eos # (Auto) 0.1 Baso # (Auto)
== END 2022-09-18 13:00 | disposition home or self-care (01) | DRG 391 ==
LOC: ANHED 11:09 → ANH3MEDSUR 11:51
PROVIDERS: Surgery; Admitting Provider Student in an Organized Health Care Education/Training Program; Emergency Provider General Practice; PCP Family Medicine; Visit Provider Nurse Practitioner
DX: K57.20 Diverticulitis of large intestine with perforation and abscess without bleeding (principal); K65.1 Peritoneal abscess; I10 Essential (primary) hypertension; E87.6 Hypokalemia; E78.5 Hyperlipidemia, unspecified
CPT/HCPCS: 36415; 74177; 75989; 80053; 81001; 83605; 83690; 83735; 85025; 85610; 85730; 87070; 87075; 87205; 96361; 96365; 96367; 96375; 99285; A9270; C1729; C1769; C9113; J0696; J1170; J1836; J2250; J2270; J2405; J3010; J3480; J7030; J7040; J7120; Q9967

== ENCOUNTER 2022-12-25 09:41 | Outpatient (CLI) | payer BC, SELFPAY ==
--- NOTE | 2022-12-25 10:32 | ECG_ITS ---
Measurements Intervals [place] Rate: 66 P: 61 MT: 137 QRS: 3 QRSD: 90 T: 20 QT: 410 QTc: 430 Interpretive Statements SINUS RHYTHM NO PREVIOUS ECG AVAILABLE FOR COMPARISON Electronically Signed On 12-25-2022 16:24:45 CDT by Karine Catherine M.D.
[2022-12-25 10:53] LABS: Hematocrit 43.2 % (37.0-47.0); Hemoglobin 14.1 g/dL (12.0-15.0)
[2022-12-25 11:13] LABS: Anion Gap 5 mmol/L (8-16); Blood Urea Nitrogen 20 mg/dL (7-17); Calcium 9.5 mg/dL (8.4-10.2); Carbon Dioxide 32 mmol/L (22-30); Chloride 100 mmol/L (98-107); Estimated Glomerular Filt Rate > 60; Glucose 100 mg/dL (65-110); Potassium 3.5 mmol/L (3.4-5.0); Sodium 137 mmol/L (137-145)
== END 2022-12-25 09:42 | disposition home or self-care (01) ==
LOC: ANHSURGERY 09:49
PROVIDERS: Anesthesiology; PCP Family Medicine; Visit Provider Surgery
DX: K57.20 Diverticulitis of large intestine with perforation and abscess without bleeding (principal); Z79.899 Other long term (current) drug therapy; Z01.818 Encounter for other preprocedural examination
CPT/HCPCS: 36415; 80048; 85014; 85018; 86850; 86900; 86901; 93005

== ENCOUNTER 2023-01-02 14:39 | Inpatient (IN) | payer BC, SELFPAY ==
--- NOTE | 2022-12-25 09:44 | PC.NURSE ---
PRE-OP INSTRUCTIONS, PLEASE READ CAREFULLY Report to the Outpatient Waiting Room, entrance under the green pavilion located off [facility], at time _0600_ on date _01/02/23_. Planned Procedure Time: _0800_. PACK A SMALL OVERNIGHT BAG AND LEAVE IN THE CAR Time changes happen often and if your time is changed the preop area will call you the afternoon before. - You and your visitor will be asked to self-screen and do not enter if you have any COVID symptoms. - A mask is optional within the hospital at this time. -VISITING HOURS 8AM-8PM Patients may have clear liquids (water, carbonated beverages, clear teas, apple juice) until 3 hours prior to surgery (0500 AM) with a maximum of 20 ounces. - No food from midnight until time of surgery Take the following medications with a SIP of water the morning of surgery: _NONE_ DO NOT STOP ANY OF YOUR OTHER PRESCRIPTION MEDICATIONS PRIOR TO SURGERY ?EXCEPT THE FOLLOWING Medications to discontinue per ANESTHESIA - _MULTIVITAMIN 3 DAYS PRIOR TO SURGERY, Date to take last dose 12/29/22_ Please no make-up, nail honduran, hairspray, perfume, deodorant, or body powder the day of surgery. No jewelry (including any body piercings) or valuables the day of surgery, leave them at home. Please take a shower or bath the night before, or the morning of, surgery with an antibacterial soap. Wear comfortable, loose fitting clothing. - Jewelry must be removed prior to entering the operating room. Rings and piercings that are not removed may be cut off. - The hospital will not accept responsibility for valuables. - Please leave all valuables, including medications, at home the day of surgery. If you are going home after surgery, a licensed local flatbed driver must drive you home. - NO public transportation without another adult if you receive anesthesia. - We recommend that an adult stay with you for 24 hours following discharge. - We also recommend that you do not drive, make important decision, drink alcoholic beverages, or take any drugs that were not prescribed by your health care provider for at least 24 hours after your discharge time. Follow any additional instructions given to you from your surgeon. DIET, BOWL PREP, PRE-OP ANTIBIOTICS, HIBICLENS SHOWER DAY BEFORE AND AM OF SURGERY If you or anyone in your household have experienced Covid symptoms in the past week, please notify your surgeon or the nurse liaison at the phone number below for possible testing. Instructions given to _PATIENT_and asked if any additional questions and then verbalized understanding. Patient advised to call surgeon office or pre surgery nurse liaison [phone] if any additional questions.
[2022-12-25 10:10] VITALS: BP 126/60; PULSE 70; RESP 18; TEMP 36.9; O2SAT 100; BMI 28.5
[2023-01-02] VITALS (15 sets, daily range): BP systolic 126–166; BP diastolic 65–83; PULSE 68–91; RESP 12–18; TEMP 35.5–36.8; O2SAT 95–100
--- NOTE | 2023-01-02 06:40 | WPDURCON ---
Assessment and Plan Assessment and plan (1) Diverticulitis of large intestine with abscess: Qualifiers: Diverticulitis bleeding: without bleeding Qualified Code(s): K57.20 - Diverticulitis of large intestine with perforation and abscess without bleeding Code(s): K57.20 - Diverticulitis of large intestine with perforation and abscess without bleeding Status: Acute Assessment and Plan: Cystoscopy, bilateral ureteral catheterization Urology Consult Note HPI Date Seen: 01/02/23 Requesting Physician: Sundar Thakkar DO Primary Care Provider: Harper Galindo MD Consult Narrative Narrative: Brady Smith is a 62 year old female, unknown to our practice, with a history recent diverticulitis with abscess formation. She is scheduled for a sigmoid colon resection and we have been asked to place bilateral ureteral catheters. She is aware the risks of this including, but not limited to, urinary tract infection, ureteral injury. Review of Systems Review of Systems: All systems reviewed & are unremarkable except as noted in HPI and below PMFSH Past Medical History Medical History Bunionette of left foot (~2011) Surgical removal Diverticulitis HLD (hyperlipidemia) Hypertension Poison sonu dermatitis Surgical History Surgical History History of partial hysterectomy Partial vaginal hysterectomy Family History Family History Grandparent Family history of glaucoma Hypertension Family history of elevated blood lipids Mother Hypertension Family history of elevated blood lipids Sibling Hypertension Family history of elevated blood lipids Social History Social History Smoking status: Never smoker Second hand tobacco smoke exposure: No Alcohol intake: current Drinks per week: 3 Alcohol use details: MAYBE 3/MONTH Substance use: never Substance use type: does not use Lack of Transportation: No Lack of Food: Never True Current Housing: I Have Housing Concerned About Future Housing: No Difficulty Paying Gas/Electric Bills: No Difficulty Paying for Meds: No Currently Unemployed: No Education: High School Diploma/GED Difficulty w/ Childcare or Family Care: No Living arrangements: with family Occupation/Education: occupation 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): Female Spiritual care concerns: No Meds Home Medications and Allergies Home Medications Medication Instructions Recorded Confirmed Type metronidazole 500 mg tablet 500 mg PO .COMPLEX #3 tabs 10/23/22 12/25/22 Rx hydrochlorothiazide 12.5 mg tablet 12.5 mg PO DAILY #90 tabs 12/12/22 12/25/22 Rx losartan 25 mg tablet 25 mg PO DAILY #90 tabs 12/12/22 12/25/22 Rx simvastatin 10 mg tablet See Rx Instructions .Route 12/12/22 12/25/22 Rx .COMPLEX #90 tabs multivitamin 1 tablet PO DAILY 12/25/22 12/25/22 History ciprofloxacin HCl 500 mg tablet 500 mg PO .COMPLEX #1 tablet 01/01/23 Rx Allergies Allergy/AdvReac Type Severity Reaction Status Date / Time latex Allergy Severe Redness of Verified 12/25/22 10:06 Skin Penicillins Allergy Severe Swelling Verified 12/25/22 10:06 Exam Const: General: no acute distress Resp: Effort & Inspection: normal respiratory effort GI: Inspection: non-distended GI Palp: No abdominal tenderness and No Guarding due to palpation present (GI) Auscultation: normal bowel sounds
--- NOTE | 2023-01-02 06:43 | WPDHPUPDATE1 ---
History and Physical Update Update Date/Time: 01/02/23 06:43 History and Physical has been reviewed, including an updated exam of the patient. There are NO changes in the patient's condition. Risks, benefits, and alternatives have been discussed and questions answered. Patient agrees to proceed with procedure.
--- NOTE | 2023-01-02 06:48 | PM.IMHP ---
H&P: HPI History of Present Illness Date/Time: 01/02/23 06:48 Chief Complaint: Diverticulitis Narrative: This is a 62yo woman who presents for sigmoid colectomy. She has had multiple episodes of diverticulitis and had an abscess that was drained in September. She reports no significant changes since last seen in office. Review of Systems Review of Systems: All systems reviewed & are unremarkable except as noted in HPI and below Constitutional: Constitutional: Denies chills, Denies fever(s), Denies headache(s) and Denies weight loss Eyes: Eyes: Denies change in vision ENT: Denies dizziness, Denies headache(s), Denies neck mass and Denies throat swelling Cardiovascular: Cardiovascular: Denies chest pain, Denies lightheadedness and Denies dyspnea Respiratory: Respiratory: Denies cough, Denies dyspnea and Denies wheezing Gastrointestinal: Gastrointestinal: Denies abdominal pain, Denies change in bowel habits, Denies nausea and Denies vomiting Genitourinary: Genitourinary: Denies hematuria and Denies dysuria Musculoskeletal: Musculoskeletal: Reports as per HPI Integumentary/Breasts: Skin/Breast: Reports as per HPI Neurologic: Denies dizziness and Denies headache(s) Allergic/Immunologic: Allergic/Immunologic: Denies throat swelling and Denies wheezing PMF Past Medical History Medical History Bunionette of left foot (~2011) Surgical removal Diverticulitis HLD (hyperlipidemia) Hypertension Poison sonu dermatitis Surgical History Surgical History History of partial hysterectomy Partial vaginal hysterectomy Family History Family History Grandparent Family history of glaucoma Hypertension Family history of elevated blood lipids Mother Hypertension Family history of elevated blood lipids Sibling Hypertension Family history of elevated blood lipids Social History Social History Smoking status: Never smoker Second hand tobacco smoke exposure: No Alcohol intake: current Drinks per week: 3 Alcohol use details: MAYBE 3/MONTH Substance use: never Substance use type: does not use Lack of Transportation: No Lack of Food: Never True Current Housing: I Have Housing Concerned About Future Housing: No Difficulty Paying Gas/Electric Bills: No Difficulty Paying for Meds: No Currently Unemployed: No Education: High School Diploma/GED Difficulty w/ Childcare or Family Care: No Living arrangements: with family Occupation/Education: occupation Additional occupation/education comments: Works in a [employer] Gender identity (if verbalized by the patient): Female Spiritual care concerns: No Meds Home Medications and Allergies Home Medications Medication Instructions Recorded Confirmed Type metronidazole 500 mg tablet 500 mg PO .COMPLEX #3 tabs 10/23/22 12/25/22 Rx hydrochlorothiazide 12.5 mg tablet 12.5 mg PO DAILY #90 tabs 12/12/22 12/25/22 Rx losartan 25 mg tablet 25 mg PO DAILY #90 tabs 12/12/22 12/25/22 Rx simvastatin 10 mg tablet See Rx Instructions .Route 12/12/22 12/25/22 Rx .COMPLEX #90 tabs multivitamin 1 tablet PO DAILY 12/25/22 12/25/22 History ciprofloxacin HCl 500 mg tablet 500 mg PO .COMPLEX #1 tablet 01/01/23 Rx Allergies Allergy/AdvReac Type Severity Reaction Status Date / Time latex Allergy Severe Redness of Verified 12/25/22 10:06 Skin Penicillins Allergy Severe Swelling Verified 12/25/22 10:06 Exam Const: General: no acute distress and alert Orientation/consciousness: patient oriented x3 HENMT: Head: normocephalic and atraumatic Ears: hearing grossly normal bilaterally Face/Nose/Sinus: Normal nares present Mouth: Yes Normal oral and palatal mucosa present Eyes: Periorbital: periorbital find
--- NOTE | 2023-01-02 06:50 | WPDHPUPDATE1 ---
History and Physical Update Update Date/Time: 01/02/23 06:50 History and Physical has been reviewed, including an updated exam of the patient. There are NO changes in the patient's condition. Risks, benefits, and alternatives have been discussed and questions answered. Patient agrees to proceed with procedure.
--- NOTE | 2023-01-02 07:08 | WPDANESEPPF ---
Anes - Initial Pre Proc Eval Procedure: Operation Date: 01/02/23 08:00 Proposed Procedures p Laparoscopic Sigmoid Colectomy, Davinci Assisted - Sundar Thakkar DO s Ureteral Stent Placement for Abdominal Surgery - Chang Holcomb MD Date/Time: 01/02/23 07:08 Surgeon: Sundar Thakkar DO Pre Op Diagnosis: diverticulitis with abscess Patient Data Age: 62 Gender: F Height: 1.54 m Weight: 65 kg Last Vital Signs Temp 36.4 C 01/02/23 07:07 Pulse 77 01/02/23 07:07 Resp 16 01/02/23 07:07 BP 139/83 01/02/23 07:07 Pulse Ox 99 01/02/23 07:07 O2 Del Method Room Air 01/02/23 07:07 Allergies Allergy/AdvReac Type Severity Reaction Status Date / Time latex Allergy Severe Redness of Verified 01/02/23 06:56 Skin Penicillins Allergy Severe Swelling Verified 01/02/23 06:56 Home Medications Medication Instructions Recorded Confirmed Type hydrochlorothiazide 12.5 mg tablet 12.5 mg PO DAILY #90 tabs 12/12/22 01/02/23 Rx losartan 25 mg tablet 25 mg PO DAILY #90 tabs 12/12/22 01/02/23 Rx simvastatin 10 mg tablet See Rx Instructions .Route 12/12/22 01/02/23 Rx .COMPLEX #90 tabs multivitamin 1 tablet PO DAILY 12/25/22 01/02/23 History Patient hx anesthesia problems: none Family hx anesthesia problems: none Results Review: All pre-operative results and documents have been reviewed as part of the pre-operative evaluation. [facility] Past Medical History Medical History Bunionette of left foot (~2011) Surgical removal Diverticulitis HLD (hyperlipidemia) Hypertension Poison sonu dermatitis Surgical History Surgical History History of partial hysterectomy Partial vaginal hysterectomy Family History Family History Grandparent Family history of glaucoma Hypertension Family history of elevated blood lipids Mother Hypertension Family history of elevated blood lipids Sibling Hypertension Family history of elevated blood lipids Social History Social History Smoking status: Never smoker Second hand tobacco smoke exposure: No Alcohol intake: current Drinks per week: 3 Alcohol use details: MAYBE 3/MONTH Substance use: never Substance use type: does not use Lack of Transportation: No Lack of Food: Never True Current Housing: I Have Housing Concerned About Future Housing: No Difficulty Paying Gas/Electric Bills: No Difficulty Paying for Meds: No Currently Unemployed: No Education: High School Diploma/GED Difficulty w/ Childcare or Family Care: No Living arrangements: with family Occupation/Education: occupation Additional occupation/education comments: Works in a [employer] Gender identity (if verbalized by the patient): Female Spiritual care concerns: No Anes - Eval Final PreProcedure Day of Procedure 01/02/23 07:08 Patient weight: overweight Heart: regular rate and rhythm Lungs: clear to auscultation Airway: Mallampati scale class II Neurological: alert and oriented Last oral intake: >/= 8 hours ASA classification: II Emergent: no Anesthetic plan: proceed Anesthesia type and monitoring: general ETT and standard monitoring Results Review: All pre-operative results and documents have been reviewed as part of the pre-operative evaluation. Informed Consent: The patient's anesthetic plan and its attendant risks and benefits were discussed with the patient/family/POA. Questions were solicited and answers provided to the satisfaction of the patient/family/POA.
[2023-01-02] MEDS: ACETAMINOPHEN 500 MG TABLET 1000 MG PO ×3 (07:14→23:15)
[2023-01-02] MEDS: LACTATED RINGERS 1,000 ML 30 ML IV CONT ×2 (07:33→12:57)
[2023-01-02] MEDS: KETOROLAC 15 MG/ML VIAL (*BKC) IV PUSH (07:34)
[2023-01-02] MEDS: SCOPOLAMINE 1.5 MG PATCH TRANSDERM (07:40)
[2023-01-02] MEDS: metroNIDAZOLE 500 MG/ISO 100ML 500 MG/100 ML BAG 100 MG IVPB (07:43)
[2023-01-02] MEDS: ceFAZolin 2 GM/D5W 50 ML 2 GM/50 ML BAG IVPB (08:07)
[2023-01-02] MEDS: INDOCYANINE GREEN 25 MG VIAL WITH DILUENT 3.75 MG IV PUSH (08:36)
[2023-01-02] MEDS: BUPIVACAINE/EPINEPHRINE 0.5% 50 ML VIAL 30 ML INFILTRATE (08:37)
[2023-01-02] MEDS: ceFAZolin SODIUM 1 GM VIAL 2 GM IV PUSH (12:26)
--- NOTE | 2023-01-02 13:00 | W.PM.PROC2 ---
Procedure Note - Detailed Date of Procedure 01/02/23 Pre-op Diagnosis diverticulitis with abscess Post-op Diagnosis Same Procedure Performed Laparoscopic sigmoid colectomy with colorectal anastomosis, da Gabriela assisted Conversion to hand assisted laparoscopic sigmoid colectomy with colorectal anastomosis Surgeon Sundar Thakkar DO Manager Baby Prince Rice MD Anesthesia General and Local (Exparel) Indications This is a 62-year-old woman who presented with multiple episodes of recurrent diverticulitis. She was 1st hospitalized in December of 2021 for diverticulitis. She underwent colonoscopy after that episode but was found to have a sigmoid stricture. She then also had a barium contrast enema to further assess and this did confirm stricture at that time. Surgery was recommended but patient did not choose to proceed with surgery. She then presented again with diverticulitis with perforation and abscess this past September. She had to have percutaneous drainage of the abscess and eventually recovered. Discussions were then made with the patient about treatment options and decision was made to proceed with robotic assisted laparoscopic sigmoid colectomy. Findings Laparoscopic sigmoid colectomy was performed. The procedure was initially started with robotic assistance and was able to perform a majority of the procedure this way. Upon entering the abdomen laparoscopically, the patient was found to have significant adhesions of the uterus to the distal sigmoid colon and upper rectum. The adnexa and ovaries were also densely adherent to the region of prior diverticulitis. There was still a small diverticular abscess just to the right of the distal sigmoid colon. I took down most of the adhesions between the uterus and sigmoid colon and this allowed me to mobilize most of the distal sigmoid colon. I then also ligated the inferior mesenteric artery robotically. I could not verify distal healthy rectum to perform the resection once everything else was mobilized, therefore I chose to convert to hand assisted laparoscopic procedure at this point. Once I placed the hand port, I was able to easily identify where the rectum appeared soft distal to the area of stricture and inflammation. I took down the remaining adhesions around this area and came across the mesorectum using LigaSure bipolar cautery. Indocyanine green was used to confirm adequate perfusion to the proximal and distal resection locations. A 25 mm EEA stapler was then chosen to perform the anastomosis. Dr. Rice was readily available for the entire procedure and assisted with the anastomosis by placing the stapler up the rectum and firing the stapler. He then also performed the proctoscopy with leak test. No evidence of anastomotic leak was visualized and the anastomotic rings appeared intact. The sigmoid colon was sent for pathology. Description of Procedure Procedure as well as risks, benefits, and alternatives were discussed with the patient. Written consent was obtained and placed in chart prior to procedure. Patient was brought back to surgical suite. She was placed supine on operating table. Time-out was done to confirm patient and procedure. She was then intubated by the anesthesia department. She was then repositioned into a modified lithotomy position. Her rectal area was prepped and draped in sterile fashion using Betadine prep and her abdomen was prepped and draped in sterile fashion using chlorhexidine prep. A 8 mm incision was made in the right upper quadrant and a 5 mm Optiview trocar was advanced through the abdominal layers under direct visualization. Once inside the abdominal cavity, carbon dioxide insufflation was used to create a pneumoperitoneum. Camera was inserted and her abdomen was inspected laparoscopically. No immediate abnormalities were identified. The patient was placed in steep Trendelenburg position. A 12 mm incision was made in the right lower quadrant about 2 cm me
[2023-01-02] MEDS: fentaNYL CITRATE INJ (*CRX) 100 MCG/2 ML VIAL 25 MCG IV PUSH ×3 (13:22→13:28)
[2023-01-02] MEDS: DICLOFENAC SODIUM 0.1% OPHTH SOLN 2.5 ML BOTTLE 1 DROP EACH EYE ×2 (14:19→20:09)
[2023-01-02] MEDS: ARTIFICIAL TEARS OPHTH SOLN 15 ML BOTTLE 1 DROP EACH EYE (14:26)
--- NOTE | 2023-01-02 14:34 | SUR.PHASEI ---
Proparacaine eye drop not in stock in PACU. Pharmacy notified to send it to [facility]. YASH Reeves from [facility] aware.
--- NOTE | 2023-01-02 14:40 | PC.NURSE ---
This patient, Brady Smith, was admitted to 3 [facility] Surg Room 300-01. Patient/family oriented to hospital policies and general routines including ID bracelet, bed and alarms, visiting hours, pain management, procedures, bathroom and other care routines, personal items, smoking policy, room service/diet, and visiting hours. Information on how to activate the Rapid Response Team has been discussed. Patient/Family are encouraged to report perceived risks to care and to ask questions if they do not understand what they are told or what they should do.
[2023-01-02] MEDS: PROPARACAINE HCL 0.5% 15 ML OPHTH SOLN 1 DROP EACH EYE (14:41)
[2023-01-02] MEDS: LACTATED RINGERS 1,000 ML 100 ML IV CONT ×2 (15:33→23:19)
[2023-01-02] MEDS: oxyCODONE HCL (*CRX) 5 MG TAB IR PO (16:02)
[2023-01-02] MEDS: MORPHINE SULFATE (*CRX) 2 MG/ML INJ IV PUSH (20:09)
[2023-01-03] VITALS: BP 99/60; PULSE 77; RESP 14; TEMP 36.9; O2SAT 97
[2023-01-03 04:00] VITALS: BP 117/69; PULSE 77; RESP 16; TEMP 36.4; O2SAT 97
[2023-01-03] MEDS: oxyCODONE HCL (*CRX) 5 MG TAB IR PO ×4 (04:16→22:50)
[2023-01-03] MEDS: ACETAMINOPHEN 500 MG TABLET 1000 MG PO ×3 (05:28→18:34)
[2023-01-03] MEDS: DICLOFENAC SODIUM 0.1% OPHTH SOLN 2.5 ML BOTTLE 1 DROP EACH EYE ×3 (05:30→22:50)
[2023-01-03 06:25] LABS: Basophils Percent Auto 0.2 % (0.2-1.2); Eosinophils Absolute Auto 0.1 K/mm3 (0-0.3); Eosinophils Percent Auto 0.4 % (0-4.4); Hematocrit 34.7 % (37.0-47.0); Immature Granulocyte Absolute 0.03 K/mm3 (0.00-0.031); Immature Granulocyte Percent A 0.2 % (0-0.5); Lymphocytes Absolute Auto 2.32 K/mm3 (0.9-3.2); Lymphocytes Percent Auto 18.9 % (18.3-44.2); Mean Corpuscular HGB Conc 31.7 g/dl (32-36); Mean Corpuscular Hemoglobin 33.1 pg (26-34); Mean Corpuscular Volume 104.5 fl (80-100); Mean Platelet Volume 10.5 fl (7.4-10.4); Monocytes Absolute Auto 1.3 K/mm3 (0.1-0.6); Monocytes Percent Auto 10.8 % (2.6-8.5); Neutrophils Absolute Auto 8.5 K/mm3 (1.3-6.7); Neutrophils Percent Auto 69.5 % (45.5-73.1); Platelet Count Result 276 k/mm3 (150-375); Red Blood Count 3.32 M/mm3 (4.2-5.4); Red Cell Distribution Width 14.7 % (11.5-14.5); White Blood Count 12.3 K/mm3 (4.5-10.0)
[2023-01-03 06:41] LABS: Anion Gap 1 mmol/L (8-16); Blood Urea Nitrogen 9 mg/dL (7-17); Calcium 8.3 mg/dL (8.4-10.2); Carbon Dioxide 30 mmol/L (22-30); Chloride 106 mmol/L (98-107); Estimated CRCL calculation 70 ml/min; Estimated Glomerular Filt Rate > 60; Glucose 93 mg/dL (65-110); Potassium 3.1 mmol/L (3.4-5.0); Sodium 137 mmol/L (137-145)
[2023-01-03 08:00] VITALS: BP 117/76; PULSE 70; RESP 16; TEMP 36.3; O2SAT 98
[2023-01-03] MEDS: ENOXAPARIN 40 MG/0.4 ML SYRINGE SUB-Q (08:33)
[2023-01-03] MEDS: LOSARTAN POTASSIUM 25 MG TABLET PO (08:33)
--- NOTE | 2023-01-03 11:18 | PM.PNGS ---
Progress Note: A&P Assessment and Plan (1) Diverticulitis of large intestine with abscess: Qualifiers: Diverticulitis bleeding: without bleeding Qualified Code(s): K57.20 - Diverticulitis of large intestine with perforation and abscess without bleeding Code(s): K57.20 - Diverticulitis of large intestine with perforation and abscess without bleeding Status: Acute Assessment and Plan: Advance to full liquids Increase activity, remove Hetser Await further return of bowel function Pathology pending Subjective Subjective Date/Time Seen: 01/03/23 11:18 Interval history: Tolerating clears. Pain controlled. Passing Flatus. No bloating or nausea. Exam GI: Inspection: non-distended and incision (intact with glue) GI Palp: Yes Soft to palpation and Yes Tenderness to palpation present (GI) (incisional) Objective Data Vital Signs Vital Signs: Vital Signs - 24 hr 01/02/23 12:57 01/02/23 13:00 01/02/23 13:15 Temperature 36.8 C Pulse Rate 80 69 87 Respiratory Rate 13 12 15 Blood Pressure 160/78 H 166/78 H 144/69 H Pulse Oximetry 100 100 100 Oxygen Delivery Simple Face Mask Simple Face Mask Simple Face Mask Oxygen Flow Rate 10 10 10 01/02/23 13:28 01/02/23 13:30 01/02/23 13:45 Temperature Pulse Rate 83 91 Respiratory Rate 13 18 Blood Pressure 152/82 H 146/73 H Pulse Oximetry 99 98 95 Oxygen Delivery Room Air Room Air Room Air Oxygen Flow Rate 01/02/23 14:00 01/02/23 14:15 01/02/23 14:30 Temperature Pulse Rate 90 90 80 Respiratory Rate 14 17 13 Blood Pressure 139/65 136/79 136/76 Pulse Oximetry 97 96 99 Oxygen Delivery Room Air Room Air Room Air Oxygen Flow Rate 01/02/23 14:40 01/02/23 14:55 01/02/23 15:25 Temperature 35.5 C L 35.7 C L 36.0 C L Pulse Rate 77 79 78 Respiratory Rate 16 18 16 Blood Pressure 133/80 143/73 H 126/75 Pulse Oximetry 95 97 97 Oxygen Delivery Oxygen Flow Rate 01/02/23 16:25 01/02/23 14:40 01/02/23 20:00 Temperature 36.3 C L 36.6 C Pulse Rate 84 68 Respiratory Rate 16 14 Blood Pressure 126/73 136/75 Pulse Oximetry 97 98 Oxygen Delivery Room Air Oxygen Flow Rate 01/03/23 00:00 01/02/23 20:00 01/03/23 04:00 Temperature 36.9 C 36.4 C L Pulse Rate 77 77 Respiratory Rate 14 16 Blood Pressure 99/60 L 117/69 Pulse Oximetry 97 97 Oxygen Delivery Room Air Oxygen Flow Rate 01/03/23 08:00 Temperature 36.3 C L Pulse Rate 70 Respiratory Rate 16 Blood Pressure 117/76 Pulse Oximetry 98 Oxygen Delivery Oxygen Flow Rate Intake/Output Intake/Output: Intake & Output 12/31/22 01/01/23 01/02/23 01/03/23 23:59 23:59 23:59 23:59 Intake Total 2049 Output Total 100 600 Balance 1950 -600 Meds/Results Medications: Active Medications Generic Name Dose Route Start Last Admin Trade Name Freq PRN Reason Stop Dose Admin Acetaminophen 1,000 mg 01/02/23 18:00 01/03/23 05:28 Acetaminophen 500 Mg Tablet PO 1,000 mg Q6HR RAFIA Administration Artificial Tears 1 drop 01/02/23 14:08 01/02/23 14:26 Artificial Tears Ophth Soln 15 Ml Bottle EACH EYE 1 drop Q2H PRN Administration Dry Eye(s) Diclofenac Sodium 1 drop 01/02/23 22:00 01/03/23 05:30 Diclofenac Sodium 0.1% Ophth Soln 2.5 Ml Bottle EACH EYE 1 drop Q8HR RAFIA Administration Enoxaparin Sodium 40 mg 01/03/23 09:00 01/03/23 08:33 Enoxaparin 40 Mg/0.4 Ml Syringe SUB-Q 40 mg DAILY RAFIA Administration Losartan Potassium 25 mg 01/03/23 09:00 01/03/23 08:33 Losartan Potassium 25 Mg Tablet PO 25 mg DAILY RAFIA Administration Morphine Sulfate 2 mg 01/02/23 14:39 01/02/23 20:09 Morphine Sulfate (*Crx) 2 Mg/Ml Inj IV PUSH 2 mg Q2H PRN Administration Pain Rated 4-6 Morphine Sulfate 4 mg 01/02/23 14:39 Morphine Sulfate (*Crx) 4 Mg/Ml Inj IV PUSH Q2H PRN Pain Rated 7-10 Ondansetron HCl 4 mg 01/02/23 14:39 Ondansetron Inj 4 Mg/2 Ml Vial IV PUSH
[2023-01-03 11:57] VITALS: BP 115/58; PULSE 73; RESP 18; TEMP 36.6; O2SAT 96
--- NOTE | 2023-01-03 13:17 | WPDANESPN ---
Anes - Prog Note Post-Op Date/Time: 01/03/23 13:17 Vital Signs: Last Vital Signs Temp 36.6 C 01/03/23 11:57 Pulse 73 01/03/23 11:57 Resp 18 01/03/23 11:57 BP 115/58 L 01/03/23 11:57 Pulse Ox 96 01/03/23 11:57 O2 Del Method Room Air 01/02/23 20:00 O2 Flow Rate 10 01/02/23 13:15 Pain Score (VAS): 0 I/O: Intake & Output 01/02/23 01/03/23 01/03/23 23:59 07:59 15:59 Intake Total 1000 Output Total 50 600 Balance 950 -600 Laboratory Tests 01/03/23 05:28 01/03/23 05:28 01/03/23 05:28 WBC 12.3 H RBC 3.32 L Hgb 11.0 L D Hct 34.7 L MCV 104.5 H MCH 33.1 MCHC 31.7 L RDW 14.7 H Plt Count 276 MPV 10.5 H Immature Gran % (Auto) 0.2 Neut % (Auto) 69.5 Lymph % (Auto) 18.9 [place] % (Auto) 10.8 H Eos % (Auto) 0.4 Baso % (Auto) 0.2 Lymph # (Auto) 2.32 [place] # (Auto) 1.3 H Eos # (Auto) 0.1 Baso # (Auto) 0.0 Abs Immat Gran (auto) 0.03 Absolute Neuts (auto) 8.5 H Absolute Nucleated RBC 0.0 Nucleated RBC % 0.0 Sodium 137 Potassium 3.1 L Chloride 106 Carbon Dioxide 30 Anion Gap 1 L BUN 9 D Creatinine 0.60 L Estim Creat Clear Calc 70 Estimated GFR > 60 Glucose 93 Calcium 8.3 L Patient Feedback: Patient satisfied with anesthetic care.
[2023-01-03 16:00] VITALS: BP 112/74; PULSE 77; RESP 16; TEMP 37.1; O2SAT 97
[2023-01-03] MEDS: oxyCODONE HCL (*CRX) 2.5 MG TAB IR PO (18:30)
[2023-01-03 20:39] VITALS: BP 121/73; PULSE 80; RESP 16; TEMP 37.7; O2SAT 98
[2023-01-04] MEDS: ACETAMINOPHEN 500 MG TABLET 1000 MG PO ×3 (01:00→11:33)
[2023-01-04 05:11] VITALS: BP 132/73; PULSE 81; RESP 16; TEMP 36.6; O2SAT 95
[2023-01-04] MEDS: oxyCODONE HCL (*CRX) 5 MG TAB IR PO ×2 (06:10→11:37)
[2023-01-04 06:38] LABS: Basophils Percent Auto 0.2 % (0.2-1.2); Eosinophils Absolute Auto 0.1 K/mm3 (0-0.3); Eosinophils Percent Auto 0.7 % (0-4.4); Hematocrit 35.9 % (37.0-47.0); Hemoglobin 11.3 g/dL (12.0-15.0); Immature Granulocyte Absolute 0.05 K/mm3 (0.00-0.031); Immature Granulocyte Percent A 0.4 % (0-0.5); Lymphocytes Absolute Auto 1.89 K/mm3 (0.9-3.2); Lymphocytes Percent Auto 14.7 % (18.3-44.2); Mean Corpuscular HGB Conc 31.5 g/dl (32-36); Mean Corpuscular Hemoglobin 33.2 pg (26-34); Mean Corpuscular Volume 105.6 fl (80-100); Mean Platelet Volume 10.6 fl (7.4-10.4); Monocytes Absolute Auto 1.1 K/mm3 (0.1-0.6); Monocytes Percent Auto 8.3 % (2.6-8.5); Neutrophils Absolute Auto 9.8 K/mm3 (1.3-6.7); Neutrophils Percent Auto 75.7 % (45.5-73.1); Platelet Count Result 278 k/mm3 (150-375); Red Cell Distribution Width 14.4 % (11.5-14.5); White Blood Count 12.9 K/mm3 (4.5-10.0)
[2023-01-04 06:44] LABS: Anion Gap 3 mmol/L (8-16); Blood Urea Nitrogen 7 mg/dL (7-17); Calcium 8.4 mg/dL (8.4-10.2); Carbon Dioxide 29 mmol/L (22-30); Chloride 106 mmol/L (98-107); Estimated CRCL calculation 86 ml/min; Estimated Glomerular Filt Rate > 60; Glucose 88 mg/dL (65-110); Potassium 2.9 mmol/L (3.4-5.0); Sodium 138 mmol/L (137-145)
[2023-01-04 08:00] VITALS: O2SAT 95
[2023-01-04] MEDS: LOSARTAN POTASSIUM 25 MG TABLET PO (08:05)
[2023-01-04] MEDS: ENOXAPARIN 40 MG/0.4 ML SYRINGE SUB-Q (08:06)
[2023-01-04] MEDS: POTASSIUM CHLORIDE INJ 40 MEQ in SODIUM CHLORIDE 0.9% IV 500 ML 130 MEQ IVPB (09:17)
[2023-01-04 14:00] VITALS: BP 154/75; PULSE 81; RESP 16; TEMP 36.9; O2SAT 97
--- NOTE | 2023-01-04 14:29 | PM.DS ---
DS: Admitting Diagnosis Discharge Date 01/04/2023 Admitting Diagnosis Diverticulitis of large intestine with perforation and abscess, without bleeding DS: Discharge Diagnosis Discharge Diagnosis (1) Diverticulitis of large intestine with abscess: Qualifiers: Diverticulitis bleeding: without bleeding Qualified Code(s): K57.20 - Diverticulitis of large intestine with perforation and abscess without bleeding Code(s): K57.20 - Diverticulitis of large intestine with perforation and abscess without bleeding Status: Acute (2) Acute hypokalemia: Code(s): E87.6 - Hypokalemia Status: Acute DS: Summary Hospital Course Reason for hospitalization: Diverticulitis Hospital Course: This is a 62-year-old woman who presented with recurrent episodes of sigmoid diverticulitis. She originally had been hospitalized about 1 year ago with diverticulitis with stricture and recovered from that hospitalization. Surgery was recommended at that time but she did not want to proceed. She then was rehospitalized with another episode of diverticulitis with perforation and abscess in September of this year. She then recovered from this episode and further discussions were made with the patient and decision was made to proceed with robotic assisted laparoscopic sigmoid colectomy. She underwent sigmoid colectomy on 01/02/2023. She had preoperative stents placed by Dr. Holcomb. Surgery was uncomplicated and she was admitted to the surgical floor postoperatively. Her Hester was kept in place until postop day 1. She was started on a clear liquid diet and pain was controlled with oral and IV pain medications. Her activity was gradually advanced as tolerated. On postop day 1 she was doing well and was passing flatus. She was advanced to a full liquid diet and her IV fluids were discontinued. On postop day 2 she was tolerating the full liquid diet and moving her bowels. Her pain was well controlled and she remained hemodynamically stable. Her potassium was low on postop day 2 and she received a potassium infusion IV. She was otherwise doing well and wanted to go home, therefore decision was made to discharge her on postop day 2 and follow-up labs drawn on Saturday to ensure that her potassium is remaining stable. Status at Discharge Functional status at discharge: independent ambulation Overall status at discharge: patient is progressing back to baseline Time Spent with Patient Time attestation: Total time spent providing and/or coordinating discharge services: Time spent: Less than 30 minutes Exam Const: General: cooperative, no acute distress and alert Orientation/consciousness: patient oriented x3 Resp: Effort & Inspection: normal respiratory effort Auscultation: clear to auscultation bilaterally Cardio: Rate: regular rate Rhythm: regular rhythm GI: Inspection: non-distended and incision (Intact with glue) GI Palp: Yes Soft to palpation, Yes Tenderness to palpation present (GI) (Incisional) and No Guarding due to palpation present (GI) Auscultation: normal bowel sounds DS: Data Data Completed and Pending Completed studies during hospitalization: Pending at discharge 01/02/23 12:24 Surgical [PTH] Routine Labs on day of discharge: Labs from last 24 hours 01/04/23 05:50 WBC 12.9 H RBC 3.40 L Hgb 11.3 L Hct 35.9 L MCV 105.6 H MCH 33.2 MCHC 31.5 L RDW 14.4 Plt Count 278 MPV 10.6 H Immature Gran % (Auto) 0.4 Neut % (Auto) 75.7 H Lymph % (Auto) 14.7 L [place] % (Auto) 8.3 Eos % (Auto) 0.7 Baso % (Auto) 0.2 Lymph # (Auto) 1.89 [place] # (Auto) 1.1 H Eos # (Auto) 0.1 Baso # (Auto) 0.0 Abs Immat Gran (auto) 0.05 H Absolute Neuts (auto) 9.8 H Absolute Nucleated RBC 0.0 Nucleated RBC % 0.0 Sodium 138 Potassium 2.9 L Chloride 106 Carbon Dioxide 29 Anion Gap 3 L BUN 7 Creatinine 0.50 L Estim Creat Clear Calc 86 Estimated GFR > 60 Glucose 88 Calcium 8.4 Discharge
--- NOTE | 2023-01-10 17:04 | W.PM.PROC2 ---
Procedure Note - Detailed Date of Procedure 01/10/23 Pre-op Diagnosis diverticulitis with abscess Post-op Diagnosis Same Procedure Performed Cystoscopy with bilateral ureteral catheterization Surgeon Chagn Holcomb MD Anesthesia General Description of Procedure The patient was brought to the operative suite where she was prepped and draped in a routine sterile fashion while in a dorsal lithotomy position after the uneventful induction of a general anesthetic. Cystoscopy was undertaken with a 21F rigid cystoscope. The bladder neck and urethra were endoscopically normal. The bladder itself was endoscopically normal without foreign body or neoplasm. The bladder mucosa was without hyperemia. There was a single orthotopic ureteral orifice bilaterally with clear efflux of urine. 5F whistle-tip catheters were place in each ureter and advanced to the kidneys without difficulty. An 18F Hester catheter was placed and the ureteral catheters were fixed to the Hester catheter with silk ties. The patient tolerated this aspect of the procedure well. Estimated Blood Loss 150 Urine Output 200
== END 2023-01-04 15:10 | disposition home or self-care (01) | DRG 331 ==
LOC: ANH3MEDSUR 14:40
PROVIDERS: Urology; Admitting Provider Surgery; PCP Family Medicine; Visit Provider Surgery
PROC: 0DTN4ZZ Resection of Sigmoid Colon, Percutaneous Endoscopic Approach (ICD-10-PCS; principal; 2023-01-02 08:00)
PROC: 0T788DZ Dilation of Bilateral Ureters with Intraluminal Device, Via Natural or Artificial Opening Endoscopic (ICD-10-PCS; 2023-01-02 08:00)
DX: K57.20 Diverticulitis of large intestine with perforation and abscess without bleeding (principal); E78.5 Hyperlipidemia, unspecified; I10 Essential (primary) hypertension; E87.6 Hypokalemia
CPT/HCPCS: 36415; 80048; 85025; 88307; A9270; C1729; C1758; C1769; J0690; J1100; J1170; J1650; J1836; J1885; J2250; J2270; J2405; J2704; J3010; J3480; J7030; J7040; J7120

== ENCOUNTER 2023-01-07 08:17 | Outpatient (CLI) | payer BC, SELFPAY ==
[2023-01-07 09:31] LABS: Anion Gap 5 mmol/L (8-16); Blood Urea Nitrogen 8 mg/dL (7-17); Calcium 9.8 mg/dL (8.4-10.2); Carbon Dioxide 31 mmol/L (22-30); Chloride 103 mmol/L (98-107); Estimated Glomerular Filt Rate > 60; Glucose 101 mg/dL (65-110); Magnesium 1.8 mg/dL (1.6-2.3); Potassium 3.9 mmol/L (3.4-5.0); Sodium 139 mmol/L (137-145)
== END 2023-01-07 08:18 | disposition home or self-care (01) ==
LOC: ANHLAB 08:19
PROVIDERS: PCP Family Medicine; Visit Provider Surgery
DX: E87.6 Hypokalemia (principal)
CPT/HCPCS: 36415; 80048; 83735